=== PATIENT | female | born 1935 | race Caucasian/White ===

== ENCOUNTER 2020-12-29 16:49 | Inpatient (IN) ==
[2020-12-29] MEDS ORDERED: SODIUM CHLORIDE 0.9% 1000ML 1,000 ML IV SCH (17:00)
[2020-12-29 17:08] LABS: Basophils # (auto) 0.02 K/uL (0-0.2); Basophils % (auto) 0.2 %; Eosinophils # (auto) 0.25 K/uL (0-0.5); Eosinophils % (auto) 2.9 %; Hemoglobin 11.5 g/dL (12.0-16.0); Lymphocytes # (auto) 1.61 K/uL (1.2-3.4); Lymphocytes % (auto) 18.9 %; Mean Corpuscular Hemoglobin 31.6 pg (25-34); Mean Corpuscular Hgb Conc 32.9 g/dL (32-36); Mean Corpuscular Volume 96.2 fL (80-100); Mean Platelet Volume 9.5 fL (7.4-10.4); Monocytes # (auto) 0.75 K/uL (0.11-0.59); Monocytes % (auto) 8.8 %; Neutrophils # (auto) 5.87 K/uL (1.4-6.5); Neutrophils % (auto) 69.2 %; Platelet Count 212 K/uL (130-400); RDW Coefficient of Variation 12.5 % (11.5-14.5); RDW Standard Deviation 43.8 fL (36.4-46.3); Red Blood Count 3.64 M/uL (4.2-5.4)
[2020-12-29 17:21] LABS: Partial Thromboplastin Time 26.8 Seconds (21.0-31.0); Prothrombin Time 10.6 Seconds (9.0-12.0)
[2020-12-29 17:29] LABS: Albumin Level 3.7 gm/dl (3.4-5.0); Appearance Urine Clear (Clear); BUN Creatinine Ratio 22.5 (10-20); Bacteria Urine Automated 2+ (Negative); Bilirubin Urine Negative (Negative); Blood Urine Trace (Negative); Calcium 9.6 mg/dl (8.5-10.1); Cast Urine Automated 0 /lpf (0-5); Color Urine Yellow; Creatinine Clr Calc Pharmacy 27.4 ml/min; Epithelial Cell Urine Auto 0-5 /lpf (0-5); Est GFR (Non-African American) 29.3; Glucose Urine UA Negative (Negative); Ketones Urine Negative (Negative); Leukocyte Esterase Urine 2+ (Negative); Nitrite Urine Negative (Negative); Potassium 4.3 mmol/L (3.5-5.1); Specific Gravity Urine 1.015 (1.000-1.030); Urobilinogen Urine Negative (Negative); WBC Urine Automated >30 /hpf (0-5); pH Urine 7.5 (4.5-7.5)
[2020-12-29 17:32] LABS: Albumin Globulin Ratio 0.8 (0.9-2); Bilirubin,Total 0.3 mg/dl (0.2-1); Globulin 4.5 gm/dl (2.5-4.0); Total Protein 8.2 gm/dl (6.4-8.2)
[2020-12-29 17:34] LABS: Protein Urine Trace (Negative)
[2020-12-29] MEDS ORDERED: MoRPHine SULFATE 2 MG/ML CARP IV STA (17:34)
[2020-12-29] MEDS ORDERED: ONDANSETRON INJ 2 MG/ML 2 ML VIAL IV STA (17:34)
[2020-12-29 18:22] LABS: Influenza A virus by PCR Negative (Neg); Influenza B virus by PCR Negative (Neg); RSV by PCR Negative (Neg); SARS CoV2 RNA(COVID-19) InHosp NEGATIVE (Negative)
--- NOTE | 2020-12-29 18:22 | XRay Report ---
SINGLE VIEW PELVIS; 2 VIEWS LEFT HIP CLINICAL HISTORY: Fall. Left hip injury. FINDINGS: An AP view of the pelvis with AP and crosstable lateral views of the left hip are correlate d with pelvic CT dated 09/21/2020. The skeletal structures are osteopenic. There is an impacted subca pital fracture of the left femur. No additional fracture is seen involving the hips or bony pelvis. M ild to moderate degenerative joint space narrowing is noted in the hips. Degenerative sclerosis is se en in the sacroiliac joints. Lumbosacral spondylosis is partially visualized. Soft tissue edema overl ies left hip. There is no bowel obstruction. Surgical clips are noted in the right abdomen. IMPRESSION: Impacted subcapital fracture of the left femur. Electronically signed by: Sebastian Paul M.D. 12/29/2020 6:20 PM
--- NOTE | 2020-12-29 18:25 | CT Scan Report ---
CT SCAN OF THE BRAIN WITHOUT IV CONTRAST CLINICAL HISTORY: Fall. COMPARISON STUDY: CT of the brain dated 09/21/2020. TECHNIQUE: Unenhanced axial CT scan of the brain is performed from the vertex to the skull base. A do se lowering technique was utilized adhering to the principles of ALARA. CT DOSE: 1400.53 mGy.cm FINDINGS: Brain parenchyma: There are age-related involutional changes noting mild subcortical and periventric ular microangiopathic change. There is no hemorrhage, mass effect, or evidence of acute territorial i schemia by CT criteria. Cantrell-white matter differentiation is preserved. No extra-axial fluid collecti on is seen. Mineralization is noted in the basal ganglia. Ventricles, sulci, cisterns: Prominent secondary to involutional change. Intracranial vasculature: There is atherosclerotic calcification of the cavernous carotid and vertebr al arteries. Calvarium: The skeletal structures are osteopenic. There is no depressed calvarial fracture. Sinuses and mastoids: The visualized paranasal sinuses are clear. The mastoid air cells are well pneu matized. Cerumen fills the right external auditory canal. Orbits: The bony orbits are grossly intact. There are bilateral ocular lens implants. IMPRESSION: There is no hemorrhage, mass effect, or evidence of acute territorial ischemia by CT crit mahendra. ACT 112: Negative or not required by law. Electronically signed by: Sebastian Paul M.D. 12/29/2020 6:23 PM
--- NOTE | 2020-12-29 18:28 | XRay Report ---
SINGLE VIEW CHEST CLINICAL HISTORY: Fall. Hip fracture. FINDINGS: An AP, portable, supine chest radiograph is compared to study dated 09/21/2020. The examina tion is degraded by portable technique and patient rotation. The heart is top normal for projection n oting atherosclerotic calcification of the thoracic aorta. The pulmonary vasculature is noncongested. Chronic interstitial thickening and foci of parenchymal scarring are similar to previous. No airspac e consolidation or large pleural effusion is identified. No pneumothorax is seen. The skeletal struct ures are osteopenic. The bony thorax is grossly intact. Advanced arthritic change and deformity is no thelma in the shoulders. Degenerative change is also seen throughout the thoracic spine. IMPRESSION: No acute cardiopulmonary abnormality. ACT 112: Negative or not required by law. Electronically signed by: Sebastian Paul M.D. 12/29/2020 6:27 PM
[2020-12-29] MEDS ORDERED: cefTRIAXone SODIUM 1,000 MG/50 ML BAG IV STA (18:39)
--- NOTE | 2020-12-29 20:11 | Emergency Department Note ---
Impression & Plan Closed fracture of left hip, Acute UTI (urinary tract infection), CHI (closed head injury), Fall ED Provider Note INFORMANT: Patient ED PROVIDER(S): Harish Rico MD CHIEF COMPLAINT: Left hip pain PLAN: Disposition: Admitted Condition: Good Outpatient prescription management: none Referral: None MEDICAL DECISION MAKING: Patient presented to the emergency department concerns about left hip fracture. X-ray imaging performed and confirmed. Head CT was negative. The patient's blo od work showed no significant abnormalities. She did have findings concerning for possible UTI. She was given a dose of IV Rocephin. She was treated with morphine and Zofran for pain control. Consultation was made with [facility], Dr. Yusef Dempsey as well as the [facility] [address] hospitalist service, Dr. Rivas. Patient was evaluated in the ER further management. Triage Nursing notes reviewed and agree them. Vital Signs: reviewed and remarkable for no significant abnormalities Differential diagnosis: Fracture, dislocation, neurovascular compromise, compartment syndrome, soft tissue injury, as well as other pathologies. Diagnostics interpreted by me: ECG: Twelve-lead ECG reveals a sinus rhythm with sinus arrhythmia at 74 bpm. There is no evidence of ST elevation or depression. No PACs or PVCs. Normal axis and QRS. Cardiac Monitoring: Cardiac monitoring ordered by me: The patient was placed on continuous cardiac monitoring and observed. It revealed a normal sinus rhythm at 67 beats per minute without ectopy or evidence of dysrhythmia. Imaging studies: Chest x-ray. Findings: A chest x-ray was performed and revealed no pneumothorax, effusion, infiltrate, pulmonary edema, free air under the diaphragm, or wide mediastinum. Impression: No acute disease. X-ray imaging of the left hip reveals an impacted subcapital fracture. Head CT: A noncontrast CT scan of the head was performed and was negative for tumor, fracture, intracranial hemorrhage, or other acute pathology. HPI: The patient is a 85 year old female who presents to the Emergency Room with complaints of left hip pain. This started yesterday and is from an accidental fall. The patient also notes the following associated symptoms, mild headache from impact on the left side of the forehead. The patient has found no relieving factors. Current pain is rated as 4/10. Outpatient x-ray performed and was concerning for possible hip fracture. Pt denies LOC, fevers, chills, diaphoresis, visual changes, neck pain, chest pain, breathing difficulties, nausea, vomiting, abdominal pain, back pain, melena, hematochezia, urinary symptoms, numbness, weakness, lymphadenopathy, rash, or other complaints. ROS: See above HPI for pertinent positives & negatives. A total of 10 systems reviewed and were otherwise negative. PAST MEDICAL HISTORY:See Below , hypertension PAST SURGICAL HISTORY:See Below, FAMILY HISTORY:See Below SOCIAL HISTORY:See Below, [place] HOME MEDICATIONS:See Below ALLERGIES:See Below VITALS:See Below PHYSICAL EXAMINATION: GENERAL: Awake, alert, uncomfortable-appearing, in no distress HENT: Normocephalic, contusion and ecchymosis noted over the left eyebrow. Oropharynx unremarkable. EYES: Normal conjunctiva. Sclera non-icteric. NECK: Inspection normal. Non-tender. Supple. No nuchal rigidity. FROM. No masses. RESPIRATORY: Clear to auscultation. No wheezes. No rales. Normal respiratory effort. CARDIAC: Normal rate. Normal rhythm. No rubs. Extremities warm and well perfu sed. Pulses equal. No JVD. GI: Soft, non-distended. No tenderness to palpation. No rebound or guarding. No masses. RECTAL: Deferred. MUSCULOSKELETAL: Upper extremities and the right lower extremity are atraumatic. The left lower extremity is shortened and externally rotated. There is tenderness about the left hip. Range of motion is severely limited at the left hip secondary to pain. Remainder of the left lower extremity is atraumatic. Chest examination reveals no tenderness. The back is symmetrical on inspection without obvious abnormality. There is no CVA tenderness to palpation. No joint edema. LOWER EXTREMITIES: Calves are equal size bilaterally and non-tender. No edema. No discoloration. NEURO: Normal sensorium. No sensory or motor deficits noted. SKIN: No rash or jaundice noted. Harish Rico MD Past Med/Surg History Medical History (Updated 12/29/20 @ 20:07 by Harish Rico MD) Anemia Anxiety Aortic stenosis Dementia Depression Diabetes GERD (gastroesophageal reflux disease) HLD (hyperlipidemia) HTN (hypertension) Hypothyroid Ischemic heart disease No pertinent family history UTI (urinary tract infection) Surgical History (Updated 09/21/20 @ 20:08 by Wilner Rice) No pertinent past surgical history Family History Other Family history non-contributory Social History Smoking Status: Never smoker Feels Safe at Home: Yes Allergies Allergies Allergy/AdvReac Type Severity Reaction Status Date / Time meperidine Allergy Unknown Unknown Verified 12/29/20 17:56 Home Meds Home Medications Medication Instructions Recorded Confirmed Saccharomyces boulardii 250 mg PO BID 09/21/20 12/29/20 acetaminophen 650 mg PO Q6H PRN MDD 3 GMS 09/21/20 12/29/20 APAP/24 HOURS atorvastatin 10 mg PO HS 09/21/20 12/29/20 carbidopa-levodopa 1 tab PO TID 09/21/20 12/29/20 cyanocobalamin (vitamin B-12) 1,000 mcg PO DAILY 09/21/20 12/29/20 [Vitamin B-12] donepezil 10 mg PO HS 09/21/20 12/29/20 levothyroxine 75 mcg PO DAILY 09/21/20 12/29/20 melatonin 3 mg PO HS 09/21/20 12/29/20 multivitamin, stress formula 1 tab PO DAILY 09/21/20 12/29/20 [Stress Formula] cholecalciferol (vitamin D3) 50 mcg PO DAILY 12/29/20 12/29/20 [Vitamin D3] escitalopram oxalate 10 mg PO DAILY 12/29/20 12/29/20 memantine 5 mg PO QPM 12/29/20 12/29/20 Results & Data (ED) Vital Signs Vital Signs - 24 hr 12/29/20 17:14 12/29/20 17:50 12/29/20 19:54 Temperature 36.9 C Temperature Source Oral Pulse Rate 82 Pulse Rate [Right Finger] 88 67 Pulse Rhythm [Right Finger] Regular Pulse Strength [Right Finger] Normal Respiratory Rate 18 18 21 Respiratory Effort / Characteristics Non-Labored Spontaneous Respiratory Depth Normal Normal Respiratory Pattern Regular Blood Pressure 178/102 H Blood Pressure [Right Arm] 147/69 H 152/72 H Blood Pressure Mean 127 Blood Pressure Mean [Right Arm] 95 98 Blood Pressure Position [Right Arm] Lying Pulse Oximetry 95 94 93 Oxygen Delivery Method Room Air Room Air Sepsis Recent Fever Within 48 Hours No Sepsis New/Unexplained Change in Mental Status N/A Sepsis Action Taken by Nursing No Action Required Laboratory Data Result diagrams: 12/29/20 17:00 12/29/20 17:00 Lab Results 12/29/20 12/29/20 12/29/20 Range/Units 17:00 17:00 17:00 WBC 8.50 (4.8-10.8) K/uL RBC 3.64 L (4.2-5.4) M/uL Hgb 11.5 L (12.0-16.0) g/dL Hct 35.0 L (37-47) % MCV 96.2 (80-100) fL MCH 31.6 (25-34) pg MCHC 32.9 (32-36) g/dL RDW Std Deviation 43.8 (36.4-46.3) fL RDW Coeff of Marisol 12.5 (11.5-14.5) % Plt Count 212 (130-400) K/uL MPV 9.5 (7.4-10.4) fL Immature Gran % (Auto) 0.0 % Neut % (Auto) 69.2 % Lymph % (Auto) 18.9 % Crook % (Auto) 8.8 % Eos % (Auto) 2.9 % Baso % (Auto) 0.2 % Neut # (Auto) 5.87 (1.4-6.5) K/uL Lymph # (Auto) 1.61 (1.2-3.4) K/uL Crook # (Auto) 0.75 H (0.11-0.59) K/uL Eos # (Auto) 0.25 (0-0.5) K/uL Baso # (Auto) 0.02 (0-0.2) K/uL Immature Gran # (Auto) 0.00 (0.00-0.02) K/uL PT 10.6 (9.0-12.0) Seconds INR 1.0 (0.9-1.1) APTT 26.8 (21.0-31.0) Seconds PTT Ratio 1.0 Sodium (136-145) mmol/L Potassium (3.5-5.1) mmol/L Chloride (98-107) mmol/L Carbon Dioxide (21-32) mmol/L Anion Gap (3-11) BUN (7-18) mg/dl Creatinine (0.6-1.2) mg/dl Est Cr Clr Drug Dosing ml/min Est GFR ( Amer) Est GFR (Non-Af Amer) BUN/Creatinine Ratio (10-20) Glucose (70-99) mg/dl Calcium (8.5-10.1) mg/dl Total Bilirubin (0.2-1) mg/dl AST (15-37) U/L ALT (12-78) U/L Alkaline Phosphatase (45-117) U/L Total Protein (6.4-8.2) gm/dl Albumin (3.4-5.0) gm/dl Globulin (2.5-4.0) gm/dl Albumin/Globulin Ratio (0.9-2) Urine Color Urine Appearance (Clear) Urine pH (4.5-7.5) Ur Specific Luther (1.000-1.030) Urine Protein (Negative) Urine Glucose (UA) (Negative) Urine Ketones (Negative) Urine Blood (Negative) Urine Nitrite (Negative) Urine Bilirubin (Negative) Urine Urobilinogen (Negative) Ur Leukocyte Esterase (Negative) Urine WBC (Auto) (0-5) /hpf Urine RBC (Auto) (0-4) /hpf U Hyaline Cast (Auto) (0-5) /lpf U Epithel Cells (Auto) (0-5) /lpf Urine Bacteria (Auto) (Negative) COVID-19 Eval Order SARS-CoV-2 (PCR) (Negative) Influenza Type A (PCR) (Neg) Influenza Type B (PCR) (Neg) RSV (RT-PCR) (Neg) Blood Type O Positive Antibody Screen NEGATIVE 12/29/20 12/29/20 12/29/20 Range/Units 17:00 17:00 17:24 WBC (4.8-10.8) K/uL RBC (4.2-5.4) M/uL Hgb (12.0-16.0) g/dL Hct (37-47) % MCV (80-100) fL MCH (25-34) pg MCHC (32-36) g/dL RDW Std Deviation (36.4-46.3) fL RDW Coeff of Marisol (11.5-14.5) % Plt Count (130-400) K/uL MPV (7.4-10.4) fL Immature Gran % (Auto) % Neut % (Auto) % Lymph % (Auto) % Crook % (Auto) % Eos % (Auto) % Baso % (Auto) % Neut # (Auto) (1.4-6.5) K/uL Lymph # (Auto) (1.2-3.4) K/uL Crook # (Auto) (0.11-0.59) K/uL Eos # (Auto) (0-0.5) K/uL Baso # (Auto) (0-0.2) K/uL Immature Gran # (Auto) (0.00-0.02) K/uL PT (9.0-12.0) Seconds INR (0.9-1.1) APTT (21.0-31.0) Seconds PTT Ratio Sodium 135 L (136-145) mmol/L Potassium 4.3 (3.5-5.1) mmol/L Chloride 104 (98-107) mmol/L Carbon Dioxide 28 (21-32) mmol/L Anion Gap 3.0 (3-11) BUN 35 H (7-18) mg/dl Creatinine 1.57 H (0.6-1.2) mg/dl Est Cr Clr Drug Dosing 27.4 ml/min Est GFR ( Amer) 34.0 Est GFR (Non-Af Amer) 29.3 BUN/Creatinine Ratio 22.5 H (10-20) Glucose 137 H (70-99) mg/dl Calcium 9.6 (8.5-10.1) mg/dl Total Bilirubin 0.3 (0.2-1) mg/dl AST 15 (15-37) U/L ALT 11 L (12-78) U/L Alkaline Phosphatase 94 (45-117) U/L Total Protein 8.2 (6.4-8.2) gm/dl Albumin 3.7 (3.4-5.0) gm/dl Globulin 4.5 H (2.5-4.0) gm/dl Albumin/Globulin Ratio 0.8 L (0.9-2) Urine Color Yellow Urine Appearance Clear (Clear) Urine pH 7.5 (4.5-7.5) Ur Specific Luther 1.015 (1.000-1.030) Urine Protein Trace H (Negative) Urine Glucose (UA) Negative (Negative) Urine Ketones Negative (Negative) Urine Blood Trace H (Negative) Urine Nitrite Negative (Negative) Urine Bilirubin Negative (Negative) Urine Urobilinogen Negative (Negative) Ur Leukocyte Esterase 2+ H (Negative) Urine WBC (Auto) >30 H (0-5) /hpf Urine RBC (Auto) 5-10 H (0-4) /hpf U Hyaline Cast (Auto) 0 (0-5) /lpf U Epithel Cells (Auto) 0-5 (0-5) /lpf Urine Bacteria (Auto) 2+ H (Negative) COVID-19 Eval Order CovFluRsv at [facility] SARS-CoV-2 (PCR) (Negative) Influenza Type A (PCR) (Neg) Influenza Type B (PCR) (Neg) RSV (RT-PCR) (Neg) Blood Type Antibody Screen 12/29/20 Range/Units 17:24 WBC (4.8-10.8) K/uL RBC (4.2-5.4) M/uL Hgb (12.0-16.0) g/dL Hct (37-47) % MCV (80-100) fL MCH (25-34) pg MCHC (32-36) g/dL RDW Std Deviation (36.4-46.3) fL RDW Coeff of Marisol (11.5-14.5) % Plt Count (130-400) K/uL MPV (7.4-10.4) fL Immature Gran % (Auto) % Neut % (Auto) % Lymph % (Auto) % Crook % (Auto) % Eos % (Auto) % Baso % (Auto) % Neut # (Auto) (1.4-6.5) K/uL Lymph # (Auto) (1.2-3.4) K/uL Crook # (Auto) (0.11-0.59) K/uL Eos # (Auto) (0-0.5) K/uL Baso # (Auto) (0-0.2) K/uL Immature Gran # (Auto) (0.00-0.02) K/uL PT (9.0-12.0) Seconds INR (0.9-1.1) APTT (21.0-31.0) Seconds PTT Ratio Sodium (136-145) mmol/L Potassium (3.5-5.1) mmol/L Chloride (98-107) mmol/L Carbon Dioxide (21-32) mmol/L Anion Gap (3-11) BUN (7-18) mg/dl Creatinine (0.6-1.2) mg/dl Est Cr Clr Drug Dosing ml/min Est GFR ( Amer) Est GFR (Non-Af Amer) BUN/Creatinine Ratio (10-20) Glucose (70-99) mg/dl Calcium (8.5-10.1) mg/dl Total Bilirubin (0.2-1) mg/dl AST (15-37) U/L ALT (12-78) U/L Alkaline Phosphatase (45-117) U/L Total Protein (6.4-8.2) gm/dl Albumin (3.4-5.0) gm/dl Globulin (2.5-4.0) gm/dl Albumin/Globulin Ratio (0.9-2) Urine Color Urine Appearance (Clear) Urine pH (4.5-7.5) Ur Specific Luther (1.000-1.030) Urine Protein (Negative) Urine Glucose (UA) (Negative) Urine Ketones (Negative) Urine Blood (Negative) Urine Nitrite (Negative) Urine Bilirubin (Negative) Urine Urobilinogen (Negative) Ur Leukocyte Esterase (Negative) Urine WBC (Auto) (0-5) /hpf Urine RBC (Auto) (0-4) /hpf U Hyaline Cast (Auto) (0-5) /lpf U Epithel Cells (Auto) (0-5) /lpf Urine Bacteria (Auto) (Negative) COVID-19 Eval Order SARS-CoV-2 (PCR) NEGATIVE (Negative) Influenza Type A (PCR) Negative (Neg) Influenza Type B (PCR) Negative (Neg) RSV (RT-PCR) Negative (Neg) Blood Type Antibody Screen Administered Medications Sodium Chloride (Nss 1000ml) 1,000 mls @ 75 mls/hr IV .[id number] Stop: 12/30/20 06:19 Last Admin: 12/29/20 17:16 Dose: 75 mls/hr Documented by: [id number] Discontinued Medications Ceftriaxone Sodium (Rocephin) 1,000 mg in 50 mls @ 100 mls/hr IV NOW STA Stop: 12/29/20 19:08 Last Infusion: 12/29/20 19:30 Dose: 0 mls/hr Documented by: [id number] Admin: 12/29/20 18:44 Dose: 100 mls/hr Documented by: [id number] Morphine Sulfate (Morphine Sulfate 2 Mg/Ml Carp) 2 mg IV NOW STA Stop: 12/29/20 17:35 Last Admin: 12/29/20 17:42 Dose: 2 mg Documented by: [id number] Ondansetron HCl (Ondansetron Inj 2 Mg/Ml 2 Ml Vial) 4 mg IV NOW STA Stop: 12/29/20 17:35 Last Admin: 12/29/20 17:42 Dose: 4 mg Documented by: [id number] Imaging Data Radiologist's Impression: Chest X-Ray 12/29/20 17:34 SINGLE VIEW CHEST CLINICAL HISTORY: Fall. Hip fracture. FINDINGS: An AP, portable, supine chest radiograph is compared to study dated 09/21/2020. The examination is degraded by portable technique and patient rotation. The heart is top normal for projection noting atherosclerotic calcification of the thoracic aorta. The pulmonary vasculature is noncongested. Chronic interstitial thickening and foci of parenchymal scarring are similar to previous. No airspace consolidation or large pleural effusion is identified. No pneumothorax is seen. The skeletal structures are osteopenic. The bony thorax is grossly intact. Advanced arthritic change and deformity is noted in the shoulders. Degenerative change is also seen throughout the thoracic spine. IMPRESSION: No acute cardiopulmonary abnormality. ACT 112: Negative or not required by law. Electronically signed by: Sebastian Paul M.D. 12/29/2020 6:[address] 12/29/20 17:34 CT SCAN OF THE BRAIN WITHOUT IV CONTRAST CLINICAL HISTORY: Fall. COMPARISON STUDY: CT of the brain dated 09/21/2020. TECHNIQUE: Unenhanced axial CT scan of the brain is performed from the vertex to the skull base. A dose lowering technique was utilized adhering to the principles of ALARA. CT DOSE: 1400.53 mGy.cm FINDINGS: Brain parenchyma: There are age-related involutional changes noting mild subcortical and periventricular microangiopathic change. There is no hemorrhage, mass effect, or evidence of acute territorial ischemia by CT criteria. Cantrell- white matter differentiation is preserved. No extra-axial fluid collection is se en. Mineralization is noted in the basal ganglia. Ventricles, sulci, cisterns: Prominent secondary to involutional change. Intracranial vasculature: There is atherosclerotic calcification of the cavernous carotid and vertebral arteries. Calvarium: The skeletal structures are osteopenic. There is no depressed calvarial fracture. Sinuses and mastoids: The visualized paranasal sinuses are clear. The mastoid air cells are well pneumatized. Cerumen fills the right external auditory canal. Orbits: The bony orbits are grossly intact. There are bilateral ocular lens implants. IMPRESSION: There is no hemorrhage, mass effect, or evidence of acute territorial ischemia by CT criteria. ACT 112: Negative or not required by law. Electronically signed by: Sebastian Paul M.D. 12/29/2020 6:23 PM Hip/Pelvis X-Ray 12/29/20 17:34 SINGLE VIEW PELVIS; 2 VIEWS LEFT HIP CLINICAL HISTORY: Fall. Left hip injury. FINDINGS: An AP view of the pelvis with AP and crosstable lateral views of the l eft hip are correlated with pelvic CT dated 09/21/2020. The skeletal structures are osteopenic. There is an impacted subcapital fracture of the left femur. No additional fracture is seen involving the hips or bony pelvis. Mild to moderate degenerative joint space narrowing is noted in the hips. Degenerative sclerosis is seen in the sacroiliac joints. Lumbosacral spondylosis is partially visualized. Soft tissue edema overlies left hip. There is no bowel obstruction. Surgical clips are noted in the right abdomen. IMPRESSION: Impacted subcapital fracture of the left femur. Electronically signed by: Sebastian Paul M.D. 12/29/2020 6:20 PM Discharge Plan Visit Data Chief Complaint: Hip Pain Stated Complaint: HIP FX ED Provider: Harish Rico Discharge Problem: Closed fracture of left hip, Acute UTI (urinary tract infection), CHI (closed head injury), Fall Forms Stand Alone Forms: [facility] [employer] Prescriptions Prescriptions: No Action acetaminophen 325 mg Tablet 650 mg PO Q6H MDD 3 GMS APAP/24 HOURS PRN (Reason: Fever Or Pain) RF: 0 atorvastatin 10 mg tablet 10 mg PO HS RF: 0 donepezil 10 mg tablet 10 mg PO HS RF: 0 cyanocobalamin (vitamin B-12) [Vitamin B-12] 1,000 mcg Tablet 1,000 mcg PO DAILY RF: 0 melatonin 3 mg Tablet 3 mg PO HS RF: 0 levothyroxine 75 mcg tablet 75 mcg PO DAILY RF: 0 carbidopa-levodopa 25-100 mg tablet 1 tab PO TID RF: 0 Stress Formula Tablet 1 tab PO DAILY RF: 0 Saccharomyces boulardii 250 mg Capsule 250 mg PO BID RF: 0 escitalopram oxalate 10 mg tablet 10 mg PO DAILY RF: 0 memantine 5 mg tablet 5 mg PO QPM RF: 0 cholecalciferol (vitamin D3) [Vitamin D3] 50 mcg (2,000 unit) Tablet 50 mcg PO DAILY RF: 0
--- NOTE | 2020-12-29 20:14 | History & Physical Report ---
Date of Service December 29, 2020 Assessment & Plan (1) Closed fracture of left hip: 85yo C female with impacted subcapital fracture of the left femur after a fall yesterday at her long term. She is neurovascularly intact. Pain is well controlled after receiving 2mg IV Morphine. She is ambulatory with a walker at baseline. -Admit to medical -Bedrest -Maintain Baez catheter -Pain control with Tylenol, Oxycodone and Morphine PRN -Bowel regimen -Ortho consultation appreciated Patient with history of ischemic heart disease, details unknown. She denies chest pain at rest or with exertion. Her EKG does not show evidence of ischemia. Per RCRI criteria patient is Class II risk. -Check BNP and troponin -Post-operative cardiac monitoring Present on Admission?: Yes (2) Acute UTI (urinary tract infection): Patient admits to dysuria x 1-2 days. UA suggestive of infection with +bacteria -Ceftriaxone 1gm IV daily -Follow cultures -Continue Saccharomyces home medication Present on Admission?: Yes (3) CHI (closed head injury): Patient found down in room. Has bruise over left eyelid. No neurological deficits. He is not on any blood thinners or antiplatelets. -Neuro checks Present on Admission?: Yes (4) Hypothyroid: Chronic. Last TSH within normal limits at 1.070 on 09/14/20 -Continue Synthroid Present on Admission?: Yes (5) HLD (hyperlipidemia): Chronic -Continue Atorvastatin 10mg po qHS Present on Admission?: Yes (6) Depression: Chronic. -Continue escitalopram Present on Admission?: Yes (7) Dementia: Patient oriented x 1 -Continue Memantine -Continue Aricept -Frequent orientation with delirium prevention strategies F/E/N - LR at 80mL/hr after midnight, electrolytes WNL - check Mg and PO4 and replete as needed, NPO after midnight Ppx - SCDs Code - Full Dispo - Admit to medical Present on Admission?: Yes History of Present Illness Chief Complaint: left hip fracture Primary Care Provider: [facility] Caryl Gaytan is an 85yo C female resident of [facility] presenting with fracture of left hip after a mechanical fall yesterday. Patient with underlying dementia as well as worsened confusion after receiving morphine and is unable to provide details of events prior to arrival. Majority of history obtained through discussion with ER staff and chart review. Per record review, patient was found down in her room yesterday after falling. She denies CP/palpitations or syncope. She did strike her head and was noted to have a bruise over the left eye. Patient had pain in the left hip - she continued to ambulate. An x-ray was performed at [facility] and patient found to have a left hip fracture therefore she was sent to [facility]. Patient complaining of mild left hip pain. She is not happy being in the ER and is somewhat frustrated that she has been here so long. Otherwise, no complaints. Specifically she denies fever, chills, cough, SOB, abdominal pain, nausea, vomiting, diarrhea or constipation. ER Course: Ceftriaxone 1gm, Morphine 2mg, Zofran 4mg, NSS Allergies Allergy/AdvReac Type Severity Reaction Status Date / Time meperidine Allergy Unknown Unknown Verified 12/29/20 17:56 Home Medications Medication Instructions Recorded Confirmed Type Saccharomyces boulardii 250 mg PO BID 09/21/20 12/29/20 History acetaminophen 650 mg PO Q6H PRN MDD 3 GMS 09/21/20 12/29/20 History APAP/24 HOURS atorvastatin 10 mg PO HS 09/21/20 12/29/20 History carbidopa-levodopa 1 tab PO TID 09/21/20 12/29/20 History cyanocobalamin (vitamin B-12) 1,000 mcg PO DAILY 09/21/20 12/29/20 History [Vitamin B-12] donepezil 10 mg PO HS 09/21/20 12/29/20 History levothyroxine 75 mcg PO DAILY 09/21/20 12/29/20 History melatonin 3 mg PO HS 09/21/20 12/29/20 History multivitamin, stress formula 1 tab PO DAILY 09/21/20 12/29/20 History [Stress Formula] cholecalciferol (vitamin D3) 50 mcg PO DAILY 12/29/20 12/29/20 History [Vitamin D3] escitalopram oxalate 10 mg PO DAILY 12/29/20 12/29/20 History memantine 5 mg PO QPM 12/29/20 12/29/20 History Past Med/Surg History Medical History Anemia Anxiety Aortic stenosis Dementia Depression Diabetes GERD (gastroesophageal reflux disease) HLD (hyperlipidemia) HTN (hypertension) Hypothyroid Ischemic heart disease No pertinent family history UTI (urinary tract infection) Surgical History No pertinent past surgical history Family History Other Family history non-contributory Social History Smoking Status: Never smoker Feels Safe at Home: Yes Review of Systems Review of Systems: All systems reviewed & are unremarkable except as noted in HPI & below Physical Exam Physical Exam: General: patient resting comfortably, NAD, non-toxic in appearance, AA&O to self Skin: warm, dry, intact, well demarcated erythematous rash beneath panus HEENT: NC/AT, PERRL, EOMI, anicteric sclera, conjunctiva without injection, external ear normal to inspection and nontender, nares patent, moist mucus membranes, dentition intact, no oropharyngeal lesions, neck supple, trachea midline, no LAD, no thyromegaly, no JVD Heart: +S1/S2, regular, no m/r/g Lungs: equal air entry bilaterally, no rales/rhonchi/wheezes Abd: +BS, soft, NT/ND, no masses/organomegaly/ascites Ext: warm, 2+ pulses in UE/LE bilaterally, no clubbing/cyanosis or edema Neuro: nonfocal, patient AA&O to self, speech intact, no facial droop, moving all extremities on command with equal strength 5/5 Results & Data Results & Data ([facility]) Vital Signs (Past 12 Hours) Vital Signs Temp Pulse Pulse Resp BP BP Pulse Ox 12/29/20 19:54 67 21 152/72 H 93 12/29/20 17:50 88 18 147/69 H 94 12/29/20 17:14 36.9 C 82 18 178/102 H 95 Laboratory Results Lab Results 12/29/20 12/29/20 12/29/20 Range/Units 17:00 17:00 17:00 WBC 8.50 (4.8-10.8) K/uL RBC 3.64 L (4.2-5.4) M/uL Hgb 11.5 L (12.0-16.0) g/dL Hct 35.0 L (37-47) % MCV 96.2 (80-100) fL MCH 31.6 (25-34) pg MCHC 32.9 (32-36) g/dL RDW Std Deviation 43.8 (36.4-46.3) fL RDW Coeff of Marisol 12.5 (11.5-14.5) % Plt Count 212 (130-400) K/uL MPV 9.5 (7.4-10.4) fL Immature Gran % (Auto) 0.0 % Neut % (Auto) 69.2 % Lymph % (Auto) 18.9 % [place] % (Auto) 8.8 % Eos % (Auto) 2.9 % Baso % (Auto) 0.2 % Neut # (Auto) 5.87 (1.4-6.5) K/uL Lymph # (Auto) 1.61 (1.2-3.4) K/uL [place] # (Auto) 0.75 H (0.11-0.59) K/uL Eos # (Auto) 0.25 (0-0.5) K/uL Baso # (Auto) 0.02 (0-0.2) K/uL Immature Gran # (Auto) 0.00 (0.00-0.02) K/uL PT 10.6 (9.0-12.0) Seconds INR 1.0 (0.9-1.1) APTT 26.8 (21.0-31.0) Seconds PTT Ratio 1.0 Sodium (136-145) mmol/L Potassium (3.5-5.1) mmol/L Chloride (98-107) mmol/L Carbon Dioxide (21-32) mmol/L Anion Gap (3-11) BUN (7-18) mg/dl Creatinine (0.6-1.2) mg/dl Est Cr Clr Drug Dosing ml/min Est GFR ( Amer) Est GFR (Non-Af Amer) BUN/Creatinine Ratio (10-20) Glucose (70-99) mg/dl Calcium (8.5-10.1) mg/dl Total Bilirubin (0.2-1) mg/dl AST (15-37) U/L ALT (12-78) U/L Alkaline Phosphatase (45-117) U/L Total Protein (6.4-8.2) gm/dl Albumin (3.4-5.0) gm/dl Globulin (2.5-4.0) gm/dl Albumin/Globulin Ratio (0.9-2) Urine Color Urine Appearance (Clear) Urine pH (4.5-7.5) Ur Specific Cannon (1.000-1.030) Urine Protein (Negative) Urine Glucose (UA) (Negative) Urine Ketones (Negative) Urine Blood (Negative) Urine Nitrite (Negative) Urine Bilirubin (Negative) Urine Urobilinogen (Negative) Ur Leukocyte Esterase (Negative) Urine WBC (Auto) (0-5) /hpf Urine RBC (Auto) (0-4) /hpf U Hyaline Cast (Auto) (0-5) /lpf U Epithel Cells (Auto) (0-5) /lpf Urine Bacteria (Auto) (Negative) COVID-19 Eval Order SARS-CoV-2 (PCR) (Negative) Influenza Type A (PCR) (Neg) Influenza Type B (PCR) (Neg) RSV (RT-PCR) (Neg) Blood Type O Positive Antibody Screen NEGATIVE 12/29/20 12/29/20 12/29/20 Range/Units 17:00 17:00 17:24 WBC (4.8-10.8) K/uL RBC (4.2-5.4) M/uL Hgb (12.0-16.0) g/dL Hct (37-47) % MCV (80-100) fL MCH (25-34) pg MCHC (32-36) g/dL RDW Std Deviation (36.4-46.3) fL RDW Coeff of Marisol (11.5-14.5) % Plt Count (130-400) K/uL MPV (7.4-10.4) fL Immature Gran % (Auto) % Neut % (Auto) % Lymph % (Auto) % [place] % (Auto) % Eos % (Auto) % Baso % (Auto) % Neut # (Auto) (1.4-6.5) K/uL Lymph # (Auto) (1.2-3.4) K/uL [place] # (Auto) (0.11-0.59) K/uL Eos # (Auto) (0-0.5) K/uL Baso # (Auto) (0-0.2) K/uL Immature Gran # (Auto) (0.00-0.02) K/uL PT (9.0-12.0) Seconds INR (0.9-1.1) APTT (21.0-31.0) Seconds PTT Ratio Sodium 135 L (136-145) mmol/L Potassium 4.3 (3.5-5.1) mmol/L Chloride 104 (98-107) mmol/L Carbon Dioxide 28 (21-32) mmol/L Anion Gap 3.0 (3-11) BUN 35 H (7-18) mg/dl Creatinine 1.57 H (0.6-1.2) mg/dl Est Cr Clr Drug Dosing 27.4 ml/min Est GFR ( Amer) 34.0 Est GFR (Non-Af Amer) 29.3 BUN/Creatinine Ratio 22.5 H (10-20) Glucose 137 H (70-99) mg/dl Calcium 9.6 (8.5-10.1) mg/dl Total Bilirubin 0.3 (0.2-1) mg/dl AST 15 (15-37) U/L ALT 11 L (12-78) U/L Alkaline Phosphatase 94 (45-117) U/L Total Protein 8.2 (6.4-8.2) gm/dl Albumin 3.7 (3.4-5.0) gm/dl Globulin 4.5 H (2.5-4.0) gm/dl Albumin/Globulin Ratio 0.8 L (0.9-2) Urine Color Yellow Urine Appearance Clear (Clear) Urine pH 7.5 (4.5-7.5) Ur Specific Cannon 1.015 (1.000-1.030) Urine Protein Trace H (Negative) Urine Glucose (UA) Negative (Negative) Urine Ketones Negative (Negative) Urine Blood Trace H (Negative) Urine Nitrite Negative (Negative) Urine Bilirubin Negative (Negative) Urine Urobilinogen Negative (Negative) Ur Leukocyte Esterase 2+ H (Negative) Urine WBC (Auto) >30 H (0-5) /hpf Urine RBC (Auto) 5-10 H (0-4) /hpf U Hyaline Cast (Auto) 0 (0-5) /lpf U Epithel Cells (Auto) 0-5 (0-5) /lpf Urine Bacteria (Auto) 2+ H (Negative) COVID-19 Eval Order CovFluRsv at [facility] SARS-CoV-2 (PCR) (Negative) Influenza Type A (PCR) (Neg) Influenza Type B (PCR) (Neg) RSV (RT-PCR) (Neg) Blood Type Antibody Screen 12/29/20 Range/Units 17:24 WBC (4.8-10.8) K/uL RBC (4.2-5.4) M/uL Hgb (12.0-16.0) g/dL Hct (37-47) % MCV (80-100) fL MCH (25-34) pg MCHC (32-36) g/dL RDW Std Deviation (36.4-46.3) fL RDW Coeff of Marisol (11.5-14.5) % Plt Count (130-400) K/uL MPV (7.4-10.4) fL Immature Gran % (Auto) % Neut % (Auto) % Lymph % (Auto) % [place] % (Auto) % Eos % (Auto) % Baso % (Auto) % Neut # (Auto) (1.4-6.5) K/uL Lymph # (Auto) (1.2-3.4) K/uL [place] # (Auto) (0.11-0.59) K/uL Eos # (Auto) (0-0.5) K/uL Baso # (Auto) (0-0.2) K/uL Immature Gran # (Auto) (0.00-0.02) K/uL PT (9.0-12.0) Seconds INR (0.9-1.1) APTT (21.0-31.0) Seconds PTT Ratio Sodium (136-145) mmol/L Potassium (3.5-5.1) mmol/L Chloride (98-107) mmol/L Carbon Dioxide (21-32) mmol/L Anion Gap (3-11) BUN (7-18) mg/dl Creatinine (0.6-1.2) mg/dl Est Cr Clr Drug Dosing ml/min Est GFR ( Amer) Est GFR (Non-Af Amer) BUN/Creatinine Ratio (10-20) Glucose (70-99) mg/dl Calcium (8.5-10.1) mg/dl Total Bilirubin (0.2-1) mg/dl AST (15-37) U/L ALT (12-78) U/L Alkaline Phosphatase (45-117) U/L Total Protein (6.4-8.2) gm/dl Albumin (3.4-5.0) gm/dl Globulin (2.5-4.0) gm/dl Albumin/Globulin Ratio (0.9-2) Urine Color Urine Appearance (Clear) Urine pH (4.5-7.5) Ur Specific Cannon (1.000-1.030) Urine Protein (Negative) Urine Glucose (UA) (Negative) Urine Ketones (Negative) Urine Blood (Negative) Urine Nitrite (Negative) Urine Bilirubin (Negative) Urine Urobilinogen (Negative) Ur Leukocyte Esterase (Negative) Urine WBC (Auto) (0-5) /hpf Urine RBC (Auto) (0-4) /hpf U Hyaline Cast (Auto) (0-5) /lpf U Epithel Cells (Auto) (0-5) /lpf Urine Bacteria (Auto) (Negative) COVID-19 Eval Order SARS-CoV-2 (PCR) NEGATIVE (Negative) Influenza Type A (PCR) Negative (Neg) Influenza Type B (PCR) Negative (Neg) RSV (RT-PCR) Negative (Neg) Blood Type Antibody Screen Diagnostic Findings SINGLE VIEW PELVIS; 2 VIEWS LEFT HIP CLINICAL HISTORY: Fall. Left hip injury. FINDINGS: An AP view of the pelvis with AP and crosstable lateral views of the left hip are correlated with pelvic CT dated 09/21/2020. The skeletal structures are osteopenic. There is an impacted subcapital fracture of the left femur. No additional fracture is seen involving the hips or bony pelvis. Mild to moderate degenerative joint space narrowing is noted in the hips. Degenerative sclerosis is seen in the sacroiliac joints. Lumbosacral spondylosis is partially visualized. Soft tissue edema overlies left hip. There is no bowel obstruction. Surgical clips are noted in the right abdomen. IMPRESSION: Impacted subcapital fracture of the left femur. Electronically signed by: Sebastian Paul M.D. 12/29/2020 6:20 PM Dictated: 12/29/201818Transcribed: 12/29/201818 CT SCAN OF THE BRAIN WITHOUT IV CONTRAST CLINICAL HISTORY: Fall. COMPARISON STUDY: CT of the brain dated 09/21/2020. TECHNIQUE: Unenhanced axial CT scan of the brain is performed from the vertex to the skull base. A dose lowering technique was utilized adhering to the principles of ALARA. CT DOSE: 1400.53 mGy.cm FINDINGS: Brain parenchyma: There are age-related involutional changes noting mild subcortical and periventricular microangiopathic change. There is no hemorrhage, mass effect, or evidence of acute territorial ischemia by CT criteria. Cantrell- white matter differentiation is preserved. No extra-axial fluid collection is seen. Mineralization is noted in the basal ganglia. Ventricles, sulci, cisterns: Prominent secondary to involutional change. Intracranial vasculature: There is atherosclerotic calcification of the cavernous carotid and vertebral arteries. Calvarium: The skeletal structures are osteopenic. There is no depressed calvarial fracture. Sinuses and mastoids: The visualized paranasal sinuses are clear. The mastoid air cells are well pneumatized. Cerumen fills the right external auditory canal. Orbits: The bony orbits are grossly intact. There are bilateral ocular lens implants. IMPRESSION: There is no hemorrhage, mass effect, or evidence of acute territorial ischemia by CT criteria. ACT 112: Negative or not required by law. Electronically signed by: Sebastian Paul M.D. 12/29/2020 6:23 PM Dictated: 12/29/201820Transcribed: 12/29/201820 SINGLE VIEW CHEST CLINICAL HISTORY: Fall. Hip fracture. FINDINGS: An AP, portable, supine chest radiograph is compared to study dated 09/21/2020. The examination is degraded by portable technique and patient rotation. The heart is top normal for projection noting atherosclerotic calcification of the thoracic aorta. The pulmonary vasculature is noncongested. Chronic interstitial thickening and foci of parenchymal scarring are similar to previous. No airspace consolidation or large pleural effusion is identified. No pneumothorax is seen. The skeletal structures are osteopenic. The bony thorax is grossly intact. Advanced arthritic change and deformity is noted in the shoulders. Degenerative change is also seen throughout the thoracic spine. IMPRESSION: No acute cardiopulmonary abnormality. ACT 112: Negative or not required by law. Electronically signed by: Sebastian Paul M.D. 12/29/2020 6:27 PM ECG Additional Comments: EKG with SR at 74 bpm with sinus arrhythmia, QV=194, QRS=70, TUv=241, no acute ischemic changes PG Care Time/CCT Total # of Minutes Spent Total Time Spent with Patient: Total time spent is greater than 50% in coordination of care (as documented) at patient's floor/unit and/or counseling patient: Coding Level of Care Code 71613 Initial Inpt Care Lvl 3 Diagnoses Closed fracture of left hip S72.002A Encounter type: initial encounter Acute UTI (urinary tract infection) N39.0 CHI (closed head injury) S09.90XA Encounter type: initial encounter Hypothyroid E03.9 Hypothyroidism type: unspecified HLD (hyperlipidemia) E78.5 Hyperlipidemia type: unspecified Depression F32.9 Depression Type: major depressive disorder Major depression recurrence: unspecified whether recurrent Active/Remission status: remission status unspecified Dementia F03.90 Dementia type: unspecified type Dementia behavioral disturbance: without behavioral disturbance (1) CHI (closed head injury) Encounter type: initial encounter Qualified Code(s): S09.90XA - Unspecified injury of head, initial encounter (2) Dementia Dementia type: unspecified type Dementia behavioral disturbance: without behavioral disturbance Qualified Code(s): F03.90 - Unspecified dementia without behavioral disturbance (3) Depression Depression Type: major depressive disorder Major depression recurrence: unspecified whether recurrent Active/Remission status: remission status unspecified Qualified Code(s): F32.9 - Major depressive disorder, single episode, unspecified (4) HLD (hyperlipidemia) Hyperlipidemia type: unspecified Qualified Code(s): E78.5 - Hyperlipidemia, unspecified (5) Hypothyroid Hypothyroidism type: unspecified Qualified Code(s): E03.9 - Hypothyroidism, unspecified (6) Closed fracture of left hip Encounter type: initial encounter Qualified Code(s): S72.002A - Fracture of unspecified part of neck of left femur, initial encounter for closed fracture
[2020-12-29] MEDS ORDERED: ONDANSETRON INJ 2 MG/ML 2 ML VIAL IV PRN (21:10)
[2020-12-29] MEDS ORDERED: MAGNESIUM HYDROXIDE SUSP 30 ML UDC PO PRN (21:10)
[2020-12-29] MEDS: NYSTATIN OINT 15 GM TUBE EXT SCH (21:10)
[2020-12-29] MEDS ORDERED: bisacodyL 10 MG SUPP PR PRN (21:10)
[2020-12-29] MEDS ORDERED: NALOXONE HCL 0.4 MG/1 ML VIAL/CARP IV PRN (21:10)
[2020-12-29] MEDS ORDERED: LACTATED RINGER'S 1,000 ML IV SCH (21:10)
[2020-12-29] MEDS ORDERED: ACETAMINOPHEN 325 MG TAB PO PRN (21:10)
[2020-12-29 21:29] LABS: Magnesium 1.9 mg/dl (1.8-2.4); NT Pro B Type Natriuretic Pept 415 pg/ml (0-1800); Phosphorus 3.2 mg/dl (2.5-4.9); Troponin I < 0.015 ng/ml (0-0.045)
[2020-12-29] MEDS: DONEPEZIL HCL 10 MG TAB PO SCH (22:33)
[2020-12-29] MEDS: SACCHAROMYCES BOULARDII 250 MG CAP PO SCH (22:34)
[2020-12-29] MEDS: MELATONIN 3 MG TAB PO SCH (22:35)
[2020-12-29] MEDS: ATORVASTATIN 10 MG TAB PO SCH (22:35)
[2020-12-29] MEDS: MEMANTINE HCL 5 MG TAB PO SCH (22:36)
[2020-12-29] MEDS: CARBIDOPA/LEVODOPA 25/100MG TAB PO SCH (22:36)
[2020-12-29] MEDS: DOCUSATE SODIUM/SENNA 50/8.6MG TAB PO SCH (22:36)
[2020-12-30] MEDS: LEVOTHYROXINE SODIUM 75 MCG TABLET PO SCH (05:45)
[2020-12-30] MEDS: CARBIDOPA/LEVODOPA 25/100MG TAB PO SCH ×3 (07:45→22:01)
[2020-12-30] MEDS: ESCITALOPRAM OXALATE 10 MG TAB PO SCH (07:45)
[2020-12-30] MEDS: SACCHAROMYCES BOULARDII 250 MG CAP PO SCH ×2 (07:45→22:00)
[2020-12-30] MEDS: NYSTATIN OINT 15 GM TUBE EXT SCH ×2 (07:45→22:03)
[2020-12-30 08:46] LABS: Basophils # (auto) 0.01 K/uL (0-0.2); Basophils % (auto) 0.2 %; Eosinophils # (auto) 0.41 K/uL (0-0.5); Hematocrit (blood only) 33.4 % (37-47); Hemoglobin 10.8 g/dL (12.0-16.0); Lymphocytes # (auto) 1.77 K/uL (1.2-3.4); Lymphocytes % (auto) 30.1 %; Mean Corpuscular Hemoglobin 31.5 pg (25-34); Mean Corpuscular Hgb Conc 32.3 g/dL (32-36); Mean Corpuscular Volume 97.4 fL (80-100); Mean Platelet Volume 9.2 fL (7.4-10.4); Monocytes # (auto) 0.51 K/uL (0.11-0.59); Monocytes % (auto) 8.7 %; Neutrophils # (auto) 3.19 K/uL (1.4-6.5); Platelet Count 191 K/uL (130-400); RDW Coefficient of Variation 12.7 % (11.5-14.5); RDW Standard Deviation 45.3 fL (36.4-46.3); Red Blood Count 3.43 M/uL (4.2-5.4); White Blood Count 5.89 K/uL (4.8-10.8)
--- NOTE | 2020-12-30 09:15 | CT Scan Report ---
CT hip LT wo con CLINICAL HISTORY: Femoral neck fracture. COMPARISON STUDY: Left hip radiographs December 29, 2020. TECHNIQUE: Axial images of the left hip were obtained without IV contrast. Sagittal and coronal recon structions were viewed. Automated exposure control was utilized for the study. A dose lowering techn ique was utilized adhering to the principles of ALARA. FINDINGS: Note is made of an acute impacted mildly displaced subcapital left femoral neck fracture. N o additional fractures are identified within visualized portions of the left hemipelvis. No osseous l esion is noted. A left hip joint effusion is present. There is possible intramuscular hemorrhage with in the left adductor muscles. IMPRESSION: 1. Acute impacted mildly displaced subcapital left femoral neck fracture. 2. Prominence of the left adductor muscles. Intramuscular hemorrhage cannot be excluded. ACT 112: Negative or not required by law. Electronically signed by: Rajat Contreras M.D. 12/30/2020 9:14 AM
[2020-12-30 09:22] LABS: Alanine Aminotransferase 7 U/L (12-78); Albumin Level 3.1 gm/dl (3.4-5.0); Aspartate Aminotransferase 11 U/L (15-37); BUN Creatinine Ratio 20.6 (10-20); Bilirubin Direct < 0.1 mg/dl (0-0.2); Blood Urea Nitrogen 30 mg/dl (7-18); Calcium 9.1 mg/dl (8.5-10.1); Carbon Dioxide 28 mmol/L (21-32); Chloride 106 mmol/L (98-107); Creatinine Clr Calc Pharmacy 29.5 ml/min; Est GFR (African American) 37.7; Est GFR (Non-African American) 32.6; Glucose 87 mg/dl (70-99); Potassium 4.4 mmol/L (3.5-5.1); Sodium 136 mmol/L (136-145)
[2020-12-30 09:25] LABS: Alkaline Phosphatase 69 U/L (45-117); Bilirubin,Total 0.4 mg/dl (0.2-1)
--- NOTE | 2020-12-30 09:41 | Orthopedic Consultation ---
Date of Consultation December 30, 2020 Assessment & Plan (1) Closed fracture of left hip: Left subcapital hip fracture impacted mildly displaced. Dr. Meade is to review the CT scan. Patient will likely need ORIF with 7.3 cannulated screws versus bipolar hemiarthroplasty. I have spoken to Dr. Rae. She states that the patient is stable for surgery. Plan for OR today pending Dr. Meade's evaluation. CT reviewed and impaction but no major angulation and satisfactory alignment for cannulated screws. History of Present Illness Reason for Consultation: Left subcapital hip fracture Attending Physician: Tiff Rae MD History of Present Illness 85-year-old female who resides at [facility] was found on the floor yesterday. Patient has a history of dementia and currently she is pleasant. She mentions that she fell but does not really remember what happened. The staff found her lying on the floor and having some discomfort in the left lower extremity. X-rays were taken it was felt that she had a hip fracture of left hip. She was transferred to [facility] where she was admitted by the hospitalist service. Further films were taken here and a CT scan was then performed as well showing a slightly displaced impacted subcapital hip fracture of the left hip. We have been asked to take care of her left hip fracture. Currently she appears comfortable but complains of left hip pain when she tries to move the left hip. Allergies Allergy/AdvReac Type Severity Reaction Status Date / Time meperidine Allergy Unknown Unknown Verified 12/29/20 17:56 Home Medications Medication Instructions Recorded Confirmed Type Saccharomyces boulardii 250 mg PO BID 09/21/20 12/29/20 History acetaminophen 650 mg PO Q6H PRN MDD 3 GMS 09/21/20 12/29/20 History APAP/24 HOURS atorvastatin 10 mg PO HS 09/21/20 12/29/20 History carbidopa-levodopa 1 tab PO TID 09/21/20 12/29/20 History cyanocobalamin (vitamin B-12) 1,000 mcg PO DAILY 09/21/20 12/29/20 History [Vitamin B-12] donepezil 10 mg PO HS 09/21/20 12/29/20 History levothyroxine 75 mcg PO DAILY 09/21/20 12/29/20 History melatonin 3 mg PO HS 09/21/20 12/29/20 History multivitamin, stress formula 1 tab PO DAILY 09/21/20 12/29/20 History [Stress Formula] cholecalciferol (vitamin D3) 50 mcg PO DAILY 12/29/20 12/29/20 History [Vitamin D3] escitalopram oxalate 10 mg PO DAILY 12/29/20 12/29/20 History memantine 5 mg PO QPM 12/29/20 12/29/20 History Patient History Medical History Anemia Anxiety Aortic stenosis Dementia Depression Diabetes GERD (gastroesophageal reflux disease) HLD (hyperlipidemia) HTN (hypertension) Hypothyroid Ischemic heart disease No pertinent family history UTI (urinary tract infection) Surgical History No pertinent past surgical history Family History Other Family history non-contributory Social History Smoking Status: Never smoker Second Hand Exposure: No; Hx Alcohol Use: No Hx Substance Use: No Preferred Language: Lithuanian Communication Ability: Impaired 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 She is sleeping but easily awoken. She answers some questions appropriately. She currently states that she is having some left hip discomfort. On examination of the left lower extremity it is slightly shortened and externally rotated compared to the right. And just doing gentle range of motion of the left hip causes her discomfort with flexion extension. She has mild pain with internal and external rotation. Mild pain with abduction. Examining the right lower extremity, she has some mild pain in the right knee during range of motion which she states she has had for some time. She is able to through gentle range of motion of the ankles bilaterally. She denies any pain in the shoulders, elbows, wrists. Range of motion is within normal limits. There is no gross motor or sensory loss seen at this time. He denies any cervical, thoracic, lumbar pain at this time. Results & Data ([facility]) Vital Signs (Past 12 Hours) Vital Signs Temp Pulse Resp BP Pulse Ox Pulse Ox 12/30/20 09:00 97 12/30/20 08:29 37.4 C 66 16 119/68 93 12/30/20 05:24 93 12/29/20 22:38 37 C 89 18 153/67 H 93 Diagnostic Findings Patient: SOSA MAX AAdmit Date: 12/29/20MR#: [id number] DRAcct ID:[id number]: HEARTHSIDEBirth Date: [address] Zip: [place], [place] [address]Qox: 85Location: 3NSex: FRoom/Bed: [id number] Phy: Tiff Rae MDDiagnosis: left hip fracturePri Phy: [facility]ard [facility] Date: 12/30/20Fam Phy:Interpreting Phy: Rajat Contreras MDAdmit Phy: Brianda Porter D.OJerrod Ordering Phy: Harish Barron PA-C cc: ~ CT hip LT wo con CLINICAL HISTORY: Femoral neck fracture. COMPARISON STUDY: Left hip radiographs December 29, 2020. TECHNIQUE: Axial images of the left hip were obtained without IV contrast. Sagittal and coronal reconstructions were viewed. Automated exposure control was utilized for the study. A dose lowering technique was utilized adhering to the principles of ALARA. FINDINGS: Note is made of an acute impacted mildly displaced subcapital left femoral neck fracture. No additional fractures are identified within visualized portions of the left hemipelvis. No osseous lesion is noted. A left hip joint effusion is present. There is possible intramuscular hemorrhage within the left adductor muscles. IMPRESSION: 1. Acute impacted mildly displaced subcapital left femoral neck fracture. 2. Prominence of the left adductor muscles. Intramuscular hemorrhage cannot be excluded. (1) Closed fracture of left hip Encounter type: initial encounter Qualified Code(s): S72.002A - Fracture of unspecified part of neck of left femur, initial encounter for closed fracture
[2020-12-30] MEDS: MoRPHine SULFATE 2 MG/ML CARP IV PRN (10:00)
--- NOTE | 2020-12-30 10:01 | Hospitalist Progress Note ---
Date of Service December 30, 2020 Assessment & Plan (1) Closed fracture of left hip: 85yo female with impacted subcapital fracture of the left femur after a fall yesterday at her snf. -Pain is well controlled with Tylenol, Oxycodone and Morphine PRN. -Solomon catheter in place -Patient remained NPO pending ortho evaluation -Ortho consult appreciated: Patient is scheduled for ORIF today (2) Acute UTI (urinary tract infection): -UA suggestive of infection with +bacteria -Urine cultures grew gram negative bacilli -Ceftriaxone 1gm IV daily -Continue Saccharomyces home medication (3) CHI (closed head injury): -Patient has bruise over left eyelid. No headaches. No neurological deficits. Patient is not on any blood thinners or antiplatelets. -Neuro checks (4) Hypothyroid: -Chronic. Last TSH within normal limits at 1.070 on 09/14/20 -Continue Synthroid (5) HLD (hyperlipidemia): -Chronic -Continue Atorvastatin 10mg po qHS (6) Depression: -Chronic. -Continue escitalopram (7) Dementia: -Patient oriented x 1 -Continue Memantine -Continue Aricept -Frequent orientation with delirium prevention strategies F/E/N - LR at 80mL/hr after midnight. Continue until after surgery and tolerating PO. electrolytes WNL - check Mg and PO4 and replete as needed, NPO after midnight Ppx - SCDs Code - Full Dispo - Admit to medical Admission and Anticipated Discharge Date Admission Date: December 29, 2020 Supervising Physician Co-Signing Physician Notes Medical Student Supervision Note: I was personally present during medical student patient encounter and independently interviewed and examined the patient and verified the murphy history and physical, reviewed labs and image studies, discussed the case with Ginna Golden and agree with the findings and care plan. Left hip fracture after mechanical fall - for repair today. continue with pain control. Acute UTI - treat with ceftriaxone. Dementia - supportive care. Subjective Carylbest Gaytan is an 85yo female with underlying dementia who presented with a left hip fracture after a mechanical fall yesterday. She was found down in her room at [facility] after falling. She was brought to the ER and she was noted to be a poor historian. She didn't recall incidents leading up to the fall. She did strike her head when she fell, and was noted to have a bruise over the left eye. In ER, patient also had findings concerning for possible UTI. She was given a dose of IV Ceftriaxone. This morning, she was laying in bed, on her left side, when I walked in. She reported feeling sleepy, although she had gotten good sleep last night. She appeared initially confused, stating that she had been brought in by her [id number] because she wasnt feeling so good. She did not remember falling or report any pain in her hip. She denies CP/palpitations or syncope. She rep orted some achiness in both knees but stated that is not new to her. She denies fever, chills, cough, headache, SOB, abdominal pain, nausea, vomiting, diarrhea or constipation. When I saw her about an hour later, she reported some discomfort in her back and left hip, stating that it might be due to her laying down in that position for some time. Review of Systems Constitutional: no fever and no chills Cardiovascular: no chest pain, no dyspnea and no lightheadedness Gastrointestinal: no abdominal pain, no nausea and no vomiting Genitourinary: no problem reported Musculoskeletal: left hip pain, back pain, knee aches Integumentary: bruise above left eye Neurologic: no headache(s) Physical Exam Eyes: + anicteric sclerae and EOM intact bilaterally Neck: trachea midline, no thyromegaly Respiratory: normal respiratory effort, lungs clear to auscultation Cardiovascular: RRR, no murmur, no edema Gastrointestinal (Abdomen): normal bowel sounds, soft, nontender, no hepatosplenomegaly Musculoskeletal: Extremities: extremities normal to inspection tenderness at hip joint area Skin: warm, dry, bruise over left eye Psychiatric: A+Ox3, euthymic affect Orientation: cooperative Genitourinary: solomon in place Results & Data Results & Data ([facility]) Vital Signs (Past 12 Hours) Vital Signs Temp Pulse Resp BP Pulse Ox Pulse Ox 12/30/20 09:00 97 12/30/20 08:29 37.4 C 66 16 119/68 93 12/30/20 05:24 93 12/29/20 22:38 37 C 89 18 153/67 H 93 (1) CHI (closed head injury) Encounter type: initial encounter Qualified Code(s): S09.90XA - Unspecified injury of head, initial encounter (2) Dementia Dementia behavioral disturbance: without behavioral disturbance Dementia type: unspecified type Qualified Code(s): F03.90 - Unspecified dementia without behavioral disturbance (3) Depression Active/Remission status: remission status unspecified Depression Type: major depressive disorder Major depression recurrence: unspecified whether recurrent Qualified Code(s): F32.9 - Major depressive disorder, single episode, unspecified (4) HLD (hyperlipidemia) Hyperlipidemia type: unspecified Qualified Code(s): E78.5 - Hyperlipidemia, unspecified (5) Hypothyroid Hypothyroidism type: unspecified Qualified Code(s): E03.9 - Hypothyroidism, unspecified (6) Closed fracture of left hip Encounter type: initial encounter Qualified Code(s): S72.002A - Fracture of unspecified part of neck of left femur, initial encounter for closed fracture
[2020-12-30] MEDS ORDERED: LACTATED RINGER'S 1,000 ML IV SCH (10:15)
--- NOTE | 2020-12-30 13:02 | Electrocardiogram Report ---
Test Reason : Blood Pressure : / mmHG Vent. Rate : 074 BPM Atrial Rate : 074 BPM P-R Int : 206 ms QRS Dur : 070 ms QT Int : 356 ms P-R-T Axes : 079 057 052 degrees QTc Int : 395 ms Sinus rhythm with marked sinus arrhythmia Low voltage QRS Borderline ECG When compared with ECG of 21-SEP-2020 19:21, No significant change was found Confirmed by Eddy Taylor ([id number]) on 12/30/2020 1:01:56 PM Referred By: [facility] Confirmed By:Eddy Taylor
--- NOTE | 2020-12-30 14:34 | Anesthesiology Consultation ---
Date of Service December 30, 2020 Assessment & Plan Chart Review Chart reviewed. Pt has history of aortic stenosis. Echocardiogram indicated preoperatively. Echo ordered. History Surgery Operation Date: 12/30/20 08:00 Proposed Procedures p Left Hip Cannulated Screw Open Reduction Internal Fixation - Messi Meade MD s Bipolar Hemiarthroplasty - Messi Meade MD Height/Weight Height: 5 ft 6 in Weight: 80.5 kg Allergies Allergy/AdvReac Type Severity Reaction Status Date / Time meperidine Allergy Unknown Unknown Verified 12/29/20 17:56 Medications Home Medications Medication Instructions Recorded Confirmed Last Taken Saccharomyces boulardii 250 mg PO BID 09/21/20 12/29/20 09/21/20 08:00 acetaminophen 650 mg PO Q6H PRN MDD 3 GMS 09/21/20 12/29/20 Unknown APAP/24 HOURS atorvastatin 10 mg PO HS 09/21/20 12/29/20 09/20/20 20:00 carbidopa-levodopa 1 tab PO TID 09/21/20 12/29/20 09/21/20 16:00 cyanocobalamin (vitamin B-12) 1,000 mcg PO DAILY 09/21/20 12/29/20 09/21/20 08:00 [Vitamin B-12] donepezil 10 mg PO HS 09/21/20 12/29/20 09/21/20 20:00 levothyroxine 75 mcg PO DAILY 09/21/20 12/29/20 09/21/20 05:30 melatonin 3 mg PO HS 09/21/20 12/29/20 09/20/20 20:00 multivitamin, stress formula 1 tab PO DAILY 09/21/20 12/29/20 09/21/20 08:00 [Stress Formula] cholecalciferol (vitamin D3) 50 mcg PO DAILY 12/29/20 12/29/20 Unknown [Vitamin D3] escitalopram oxalate 10 mg PO DAILY 12/29/20 12/29/20 Unknown memantine 5 mg PO QPM 12/29/20 12/29/20 Unknown Active Medications Generic Name Dose Route Start Last Admin Trade Name Freq PRN Reason Stop Dose Admin Atorvastatin Calcium 10 mg 12/29/20 21:30 12/29/20 22:35 Atorvastatin 10 Mg Tab PO 01/28/21 21:29 10 mg HS NICOLASA Administration Carbidopa/Levodopa 1 tab 12/29/20 21:30 12/30/20 13:19 Carbidopa/Levodopa 25/100mg Tab PO 01/28/21 21:29 1 tab TID NICOLASA Administration Donepezil HCl 10 mg 12/29/20 21:30 12/29/20 22:33 Donepezil Hcl 10 Mg Tab PO 01/28/21 21:29 10 mg HS NICOLASA Administration Escitalopram Oxalate 10 mg 12/30/20 09:00 12/30/20 07:45 Escitalopram Oxalate 10 Mg Tab PO 01/29/21 08:59 10 mg DAILY NICOLASA Administration Lactated Ringer's 1,000 mls @ 80 mls/hr 12/30/20 10:15 12/30/20 10:34 Lr IV 01/29/21 10:14 80 mls/hr .[id number] NICOLASA Administration Levothyroxine Sodium 75 mcg 12/30/20 06:30 12/30/20 05:45 Levothyroxine Sodium 75 Mcg Tablet PO 01/29/21 06:29 75 mcg DAILYBB NICOLASA Administration Melatonin 3 mg 12/29/20 21:30 12/29/20 22:35 Melatonin 3 Mg Tab PO 01/28/21 21:29 3 mg HS NICOLASA Administration Memantine 5 mg 12/29/20 21:30 12/29/20 22:36 Memantine Hcl 5 Mg Tab PO 01/28/21 21:29 5 mg QPM NICOLASA Administration Morphine Sulfate 1 mg 12/29/20 21:10 12/30/20 10:00 Morphine Sulfate 2 Mg/Ml Carp IV 01/12/21 21:09 1 mg Q4H PRN Administration Pain (1,2,3,4,5) & Pre PT Nystatin 1 appln 12/29/20 21:10 12/30/20 07:45 Nystatin Oint 15 Gm Tube EXT 01/28/21 21:09 1 appln BID NICOLASA Administration Saccharomyces Boulardii 250 mg 12/29/20 21:30 12/30/20 07:45 Saccharomyces Boulardii 250 Mg Cap PO 01/28/21 21:29 250 mg BID NICOLASA Administration Senna/Docusate Sodium 2 tab 12/29/20 21:30 12/29/20 22:36 Docusate Sodium/Senna 50/8.6mg Tab PO 01/28/21 21:29 2 tab HS NICLOASA Administration NPO Date Last Intake of Fluids: 12/29/20 Time Last Intake of Fluids: 23:59 Date Last Intake of Solids: 12/29/20 Time Last Intake of Solids: 23:59 Past Medical History Medical History Anemia Anxiety Aortic stenosis Dementia Depression Diabetes GERD (gastroesophageal reflux disease) HLD (hyperlipidemia) HTN (hypertension) Hypothyroid Ischemic heart disease No pertinent family history UTI (urinary tract infection) Past Family History Family History Other Family history non-contributory Past Surgical History Surgical History No pertinent past surgical history Social History Smoking Status: Never smoker Do You Dip or Chew Tobacco: No Hx Alcohol Use: No Hx Substance Use: No Physical Exam Vital Signs Last Vital Signs Temp 37.4 C 12/30/20 08:29 Pulse 66 12/30/20 08:29 Resp 16 12/30/20 08:29 BP 119/68 12/30/20 08:29 Pulse Ox 97 12/30/20 09:00 Testing Laboratory Results 12/30/20 08:26 12/30/20 08:26 PT 10.6 Seconds (9.0-12.0) 12/29/20 17:00 INR 1.0 (0.9-1.1) 12/29/20 17:00 APTT 26.8 Seconds (21.0-31.0) 12/29/20 17:00 Urine Color Yellow 12/29/20 17:00 Urine Appearance Clear (Clear) 12/29/20 17:00 Urine pH 7.5 (4.5-7.5) 12/29/20 17:00 Ur Specific [place] 1.015 (1.000-1.030) 12/29/20 17:00 Urine Protein Trace (Negative) H 12/29/20 17:00 Urine Glucose (UA) Negative (Negative) 12/29/20 17:00 Urine Ketones Negative (Negative) 12/29/20 17:00 Urine Nitrite Negative (Negative) 12/29/20 17:00 Ur Leukocyte Esterase 2+ (Negative) H 12/29/20 17:00 Urine WBC (Auto) >30 /hpf (0-5) H 12/29/20 17:00 Urine RBC (Auto) 5-10 /hpf (0-4) H 12/29/20 17:00 U Hyaline Cast (Auto) 0 /lpf (0-5) 12/29/20 17:00 U Epithel Cells (Auto) 0-5 /lpf (0-5) 12/29/20 17:00 Urine Bacteria (Auto) 2+ (Negative) H 12/29/20 17:00 Blood Type O Positive 12/29/20 17:00 Antibody Screen NEGATIVE 12/29/20 17:00 12/29/20 17:00 Urine Culture - Preliminary Urine,Clean Catch Gram negative bacilli
[2020-12-30] MEDS ORDERED: fentaNYL citrate 100 MCG/2 ML VIAL ONE ×4 (14:37→18:16)
[2020-12-30] MEDS ORDERED: DEXAMETHASONE SOD INJ 4 MG/ML VIAL ONE (14:39)
[2020-12-30] MEDS ORDERED: ONDANSETRON INJ 2 MG/ML 2 ML VIAL ONE (14:39)
[2020-12-30] MEDS ORDERED: MIDAZOLAM HCL 1 MG/ML 2ML VIAL ONE (14:39)
[2020-12-30] MEDS ORDERED: LIDOCAINE HCL 2% 2 ML VIAL/AMP(20MG/ML) INFIL ONE (14:39)
[2020-12-30] MEDS ORDERED: PROPOFOL IV EMULSION 10 MG/ML 20 ML VIAL IV ONE (14:39)
--- NOTE | 2020-12-30 15:59 | XCELERA ---
[id number]
[2020-12-30] MEDS ORDERED: BACITRACIN INJ 50,000 UNIT VIAL ONE (16:18)
--- NOTE | 2020-12-30 16:19 | History & Physical Bridge Note ---
Date of Service December 30, 2020 History & Physical Bridge Note I have examined the patient, reviewed the History & Physical and in the interval since the performance of the History & Physical I have noted the following changes of clinical significance: no changes noted
[2020-12-30] MEDS ORDERED: BUPIVACAINE 0.5 % 5 MG/1 ML PF 10ML VIAL ONE (16:23)
[2020-12-30] MEDS ORDERED: GLYCOPYRROLATE 0.2 MG/ML VIAL ONE (17:04)
[2020-12-30] MEDS ORDERED: SODIUM CHLORIDE 0.9% INJ 10 ML VIAL ONE (17:05)
[2020-12-30] MEDS ORDERED: ceFAZolin 1000MG 1,000 MG/7.5 ML SYR IV ONE (17:09)
[2020-12-30] MEDS ORDERED: PHENYLEPHRINE 100MCG/ML 5ML SYR ONE (17:26)
[2020-12-30] MEDS ORDERED: ESMOLOL HCL INJ 10 MG/ML 10ML VIAL IV ONE (17:26)
[2020-12-30] MEDS ORDERED: ePHEDrine sulfate 50 MG/ML SYR ONE (17:26)
--- NOTE | 2020-12-30 18:00 | Operative Report ---
Post Operative Report Pre & Post Diagnosis Operation Date: 12/30/20 14:00 Pre-Op Diagnosis: Closed fracture valgus impacted femoral neck of left hip Post-Op Diagnosis: Closed fracture valgus impacted femoral neck of left hip I identified the patient and participated in the time-out.: Yes Procedure Operation Date: 12/30/20 14:00 Actual Procedures p Left valgus impacted femoral neck fracture internal fixation with cannulated screws- Messi Meade MD Surgeon Messi Meade MD Water Softener Installer Gerry EASLEY Estimated Blood Loss 10 Findings Consistent with Post-Op Diagnosis Specimens None Drains None Anesthesia Type General Complications none Disposition Accompanied Patient To Recovery: No Disposition: Recovery Room Indications 85-year-old female presents with a closed valgus impacted femoral neck fracture. Patient is a minimal ambulator. Patient has dementia. Description of Procedure Patient was taken to the operating room anesthetized under spinal anesthesia with sedation. Patient position on a fracture table. The left lower extremity was placed into boot traction and the opposite leg was placed into the well leg avery well-padded position in some flexion and internal rotation. Minimal traction was placed on the extremity just enough to position and stabilize the fracture. Fluoroscopy C-arm was brought in to visualize the left hip. The fracture was lined up satisfactorily on AP and lateral views. The hip was then sterilely prepped and draped in usual sterile fashion. Fluoroscopy was brought in and the level of fracture and trochanter area of the hip were documented and marked and then a small longitudinal incision was made over the lateral greater trochanteric area. Skin incised sharply. The subcutaneous tissues were dissected down to the fascia. The fascia monik was divided longitudinally. Under fluoroscopic guidance 3 parallel guidewires were placed in an inverted triangle fashion coursing across the fracture site. Screw lengths were measured and three 7.3 mm cannulated screws were advanced across the fracture with good fixation. The guidewires were removed the wound was irrigated then the fascia was closed with interrupted [id number] #1 Vicryl sutures the subcutaneous tissues were closed with a 2-0 Vicryl and the skin was closed with ayanna and sterile dressings were applied. I attest to the content of the Intraoperative Record and any orders documented therein. Any exceptions are noted below.
--- NOTE | 2020-12-30 18:06 | Fluoroscopy Report ---
FL hip LT 2-3V CLINICAL HISTORY: LEFT CANNULATED SCREWS VS. BIPOLAR HIP COMPARISON STUDY: 12/29/2020 FLUOROSCOPY TIME: 62 seconds. NUMBER OF FLUOROSCOPIC IMAGES: 3 FINDINGS: 3 intraoperative fluoroscopic spot images demonstrate internal fixation of a subcapital lef t hip fracture with 3 cannulated screws. IMPRESSION: Intraoperative fluoroscopic spot images demonstrating internal fixation of a subcapital left hip fracture with 3 cannulated screws ACT 112: Negative or not required by law. Electronically signed by: Tomas Carney M.D. 12/30/2020 6:05 PM
[2020-12-30] MEDS ORDERED: ATROPINE SULFATE 0.1 MG/ML 10ML SYR IV PRN (18:14)
[2020-12-30] MEDS ORDERED: ePHEDrine sulfate 50 MG/ML AMP IV PRN (18:14)
[2020-12-30] MEDS ORDERED: fentaNYL citrate 100 MCG/2 ML VIAL IV PRN (18:14)
[2020-12-30] MEDS ORDERED: ONDANSETRON INJ 2 MG/ML 2 ML VIAL IV PRN ×2 (18:14→19:31)
[2020-12-30] MEDS ORDERED: HYDROmorphone INJ 2 MG/ML SYR/VIAL IV PRN (18:14)
[2020-12-30] MEDS ORDERED: LORazepam 2 MG/4 ML VIAL ONE (18:22)
[2020-12-30] MEDS ORDERED: LORazepam 0.5 MG/1 ML VIAL IV ONE (18:45)
[2020-12-30] MEDS ORDERED: cefTRIAXone SODIUM 2,000 MG in DEXTROSE 5% 50 ML IV SCH (19:00)
--- NOTE | 2020-12-30 19:01 | Anesthesiology Progress Note ---
Date of Service December 30, 2020 Anesthesia Post Procedure Vital Signs Vital Signs: Temp Pulse Pulse Pulse Resp BP BP 12/30/20 18:50 36.2 C L 99 H 20 116/56 L 12/30/20 18:40 93 H 18 125/67 12/30/20 18:30 120 H 18 103/57 L 12/30/20 18:20 123 H 16 143/68 H 12/30/20 18:10 93 H 18 159/79 H 12/30/20 18:08 36.7 C 115 H 22 165/89 H 12/30/20 14:50 37.4 C 70 18 12/30/20 09:00 12/30/20 08:29 37.4 C 66 16 12/30/20 05:24 12/29/20 22:38 37 C 89 18 12/29/20 21:00 37.7 C H 65 18 12/29/20 20:45 37.7 C H 65 18 12/29/20 20:40 68 18 138/90 12/29/20 19:54 67 21 BP Pulse Ox Pulse Ox 12/30/20 18:50 93 12/30/20 18:40 92 12/30/20 18:30 88 L 12/30/20 18:20 87 L 12/30/20 18:10 96 12/30/20 18:08 96 12/30/20 14:50 128/70 94 12/30/20 09:00 97 12/30/20 08:29 119/68 93 12/30/20 05:24 93 12/29/20 22:38 153/67 H 93 12/29/20 21:00 171/73 H 95 12/29/20 20:45 171/73 H 95 93 12/29/20 20:40 94 12/29/20 19:54 152/72 H 93 Pain Intensity Left Hip: Pain Intensity: 7 Transfer of Care Handoff Completed per policy Notes Mental Status: alert / awake / arousable and participated in evaluation Patient Amnestic to Procedure: Yes Nausea / Vomiting: adequately controlled Pain: adequately controlled Airway Patency, RR, SpO2: stable & adequate BP & HR: stable & adequate Hydration State: stable & adequate Anesthetic Complications: no major complications apparent and Pt Satisfied with anesthetic care Notes: pt combative in pacu. gave ativan which calmed her down
[2020-12-30] MEDS ORDERED: bisacodyL 10 MG SUPP PR PRN (19:31)
[2020-12-30] MEDS ORDERED: MAGNESIUM HYDROXIDE SUSP 30 ML UDC PO PRN (19:31)
[2020-12-30] MEDS ORDERED: NALOXONE HCL 0.4 MG/1 ML VIAL/CARP IV PRN (19:31)
[2020-12-30] MEDS ORDERED: METOCLOPRAMIDE HCL INJ 5 MG/ML 2 ML VIAL IV PRN (19:31)
[2020-12-30] MEDS: SODIUM CHLORIDE 0.9% 1000ML 1,000 ML IV SCH (20:37)
[2020-12-30] MEDS ORDERED: GLUCOSE 10 TABS/TUBE PO PRN (20:39)
[2020-12-30] MEDS ORDERED: CARBOHYDRATES FOR HYPOGLYCEMIA PO PRN (20:39)
[2020-12-30] MEDS ORDERED: DEXTROSE 50% 50 ML SYRINGE IV PRN (20:39)
[2020-12-30] MEDS ORDERED: GLUCAGON FOR INJ 1 MG VIAL SQ PRN (20:39)
[2020-12-30] MEDS ORDERED: GLUCOSE 40% GEL 15 GM TUBE PO PRN (20:39)
[2020-12-30] MEDS: INSULIN ASPART 100 UNITS/ML 3 ML PEN SC SCH (21:47)
[2020-12-30] MEDS: SENNA 8.6 MG TAB PO SCH (21:58)
[2020-12-30] MEDS: DOCUSATE SODIUM 100 MG CAP PO SCH (21:59)
[2020-12-30] MEDS: ASPIRIN 81 MG ECTAB PO SCH (21:59)
[2020-12-30] MEDS: DOCUSATE SODIUM/SENNA 50/8.6MG TAB PO SCH (21:59)
[2020-12-30] MEDS: ATORVASTATIN 10 MG TAB PO SCH (22:01)
[2020-12-30] MEDS: MEMANTINE HCL 5 MG TAB PO SCH (22:02)
[2020-12-30] MEDS: DONEPEZIL HCL 10 MG TAB PO SCH (22:02)
[2020-12-30] MEDS: MELATONIN 3 MG TAB PO SCH (22:03)
[2020-12-31] MEDS: MoRPHine SULFATE 2 MG/ML CARP IV PRN (04:26)
[2020-12-31] MEDS: LEVOTHYROXINE SODIUM 75 MCG TABLET PO SCH (05:27)
[2020-12-31] MEDS: SODIUM CHLORIDE 0.9% 1000ML 1,000 ML IV SCH (05:36)
[2020-12-31 07:35] LABS: Hematocrit (blood only) 32.9 % (37-47); Hemoglobin 10.9 g/dL (12.0-16.0); Mean Corpuscular Hemoglobin 31.7 pg (25-34); Mean Corpuscular Hgb Conc 33.1 g/dL (32-36); Mean Corpuscular Volume 95.6 fL (80-100); Mean Platelet Volume 9.4 fL (7.4-10.4); Platelet Count 208 K/uL (130-400); RDW Coefficient of Variation 12.4 % (11.5-14.5); RDW Standard Deviation 43.3 fL (36.4-46.3); Red Blood Count 3.44 M/uL (4.2-5.4); White Blood Count 6.87 K/uL (4.8-10.8)
[2020-12-31 08:11] LABS: BUN Creatinine Ratio 18.2 (10-20); Calcium 9.2 mg/dl (8.5-10.1); Creatinine Clr Calc Pharmacy 28.8 ml/min; Est GFR (African American) 36.8; Est GFR (Non-African American) 31.8; Potassium 4.7 mmol/L (3.5-5.1)
--- NOTE | 2020-12-31 08:37 | Orthopedic Progress Note ---
Date of Service December 31, 2020 Assessment & Plan (1) Closed fracture of left hip: Left subcapital hip fracture impacted mildly displaced. Dr. Meade is to review the CT scan. Patient will likely need ORIF with 7.3 cannulated screws versus bipolar hemiarthroplasty. I have spoken to Dr. Rae. She states that the patient is stable for surgery. Plan for OR today pending Dr. Meade's evaluation. CT reviewed and impaction but no major angulation and satisfactory alignment for cannulated screws. Admission and Anticipated Discharge Date Admission Date: December 29, 2020 Postop day 1 status post ORIF left hip fracture with 7.3 cannulated screws. PT/OT protocols. 50% weightbearing. DVT prophylaxis-aspirin p.o. twice daily, SCDs Pain management as written. DC planning-turn to [facility] when medically stable. Subjective Postop day 1 Patient awake and alert. Pleasantly confused. Answers some questions appropriately. States she is having some pain from the left hip surgical area but otherwise has no complaints this morning. Physical Exam Physical Exam: Dressings are clean, dry, and intact. She has minimal swelling over the thigh. Calves are soft nontender. Neurovascular intact. Toes are mobile. Results & Data ([facility]) Vital Signs (Past 12 Hours) Vital Signs Temp Pulse Resp BP BP Pulse Ox 12/31/20 07:42 36.8 C 65 16 113/65 92 12/31/20 02:22 36.5 C 83 18 137/73 91 12/30/20 22:17 36.4 C L 85 18 143/80 H 94 12/30/20 21:18 36.1 C L 91 H 20 152/81 H 97 Laboratory Results Laboratory Results WBC 6.87 K/uL (4.8-10.8) 12/31/20 07:08 RBC 3.44 M/uL (4.2-5.4) L 12/31/20 07:08 Hgb 10.9 g/dL (12.0-16.0) L 12/31/20 07:08 Hct 32.9 % (37-47) L 12/31/20 07:08 MCV 95.6 fL (80-100) 12/31/20 07:08 MCH 31.7 pg (25-34) 12/31/20 07:08 MCHC 33.1 g/dL (32-36) 12/31/20 07:08 RDW Std Deviation 43.3 fL (36.4-46.3) 12/31/20 07:08 RDW Coeff of Marisol 12.4 % (11.5-14.5) 12/31/20 07:08 Plt Count 208 K/uL (130-400) 12/31/20 07:08 MPV 9.4 fL (7.4-10.4) 12/31/20 07:08 Immature Gran % (Auto) 0.0 % 12/30/20 08:26 Neut % (Auto) 54.0 % 12/30/20 08:26 Lymph % (Auto) 30.1 % 12/30/20 08:26 [place] % (Auto) 8.7 % 12/30/20 08:26 Eos % (Auto) 7.0 % 12/30/20 08:26 Baso % (Auto) 0.2 % 12/30/20 08:26 Neut # (Auto) 3.19 K/uL (1.4-6.5) 12/30/20 08:26 Lymph # (Auto) 1.77 K/uL (1.2-3.4) 12/30/20 08:26 [place] # (Auto) 0.51 K/uL (0.11-0.59) 12/30/20 08:26 Eos # (Auto) 0.41 K/uL (0-0.5) 12/30/20 08:26 Baso # (Auto) 0.01 K/uL (0-0.2) 12/30/20 08:26 Immature Gran # (Auto) 0.00 K/uL (0.00-0.02) 12/30/20 08:26 PT 10.6 Seconds (9.0-12.0) 12/29/20 17:00 INR 1.0 (0.9-1.1) 12/29/20 17:00 APTT 26.8 Seconds (21.0-31.0) 12/29/20 17:00 PTT Ratio 1.0 12/29/20 17:00 Sodium 135 mmol/L (136-145) L 12/31/20 07:08 Potassium 4.7 mmol/L (3.5-5.1) 12/31/20 07:08 Chloride 104 mmol/L (98-107) 12/31/20 07:08 Carbon Dioxide 25 mmol/L (21-32) 12/31/20 07:08 Anion Gap 6.0 (3-11) 12/31/20 07:08 BUN 27 mg/dl (7-18) H 12/31/20 07:08 Creatinine 1.47 mg/dl (0.6-1.2) H 12/31/20 07:08 Est Cr Clr Drug Dosing 28.8 ml/min 12/31/20 07:08 Est GFR ( Amer) 36.8 12/31/20 07:08 Est GFR (Non-Af Amer) 31.8 12/31/20 07:08 BUN/Creatinine Ratio 18.2 (10-20) 12/31/20 07:08 Glucose 127 mg/dl (70-99) H 12/31/20 07:08 POC Glucose 105 mg/dl (70-99) H 12/30/20 20:36 Calcium 9.2 mg/dl (8.5-10.1) 12/31/20 07:08 Phosphorus 3.2 mg/dl (2.5-4.9) 12/29/20 17:00 Magnesium 1.9 mg/dl (1.8-2.4) 12/29/20 17:00 Total Bilirubin 0.4 mg/dl (0.2-1) 12/30/20 08:26 Direct Bilirubin < 0.1 mg/dl (0-0.2) 12/30/20 08:26 AST 11 U/L (15-37) L 12/30/20 08:26 ALT 7 U/L (12-78) L 12/30/20 08:26 Alkaline Phosphatase 69 U/L (45-117) 12/30/20 08:26 Troponin I < 0.015 ng/ml (0-0.045) 12/29/20 17:00 NT-Pro-B Natriuret Pep 415 pg/ml (0-1800) 12/29/20 17:00 Total Protein 7.0 gm/dl (6.4-8.2) 12/30/20 08:26 Albumin 3.1 gm/dl (3.4-5.0) L 12/30/20 08:26 Globulin 4.5 gm/dl (2.5-4.0) H 12/29/20 17:00 Albumin/Globulin Ratio 0.8 (0.9-2) L 12/29/20 17:00 Urine Color Yellow 12/29/20 17:00 Urine Appearance Clear (Clear) 12/29/20 17:00 Urine pH 7.5 (4.5-7.5) 12/29/20 17:00 Ur Specific [place] 1.015 (1.000-1.030) 12/29/20 17:00 Urine Protein Trace (Negative) H 12/29/20 17:00 Urine Glucose (UA) Negative (Negative) 12/29/20 17:00 Urine Ketones Negative (Negative) 12/29/20 17:00 Urine Blood Trace (Negative) H 12/29/20 17:00 Urine Nitrite Negative (Negative) 12/29/20 17:00 Urine Bilirubin Negative (Negative) 12/29/20 17:00 Urine Urobilinogen Negative (Negative) 12/29/20 17:00 Ur Leukocyte Esterase 2+ (Negative) H 12/29/20 17:00 Urine WBC (Auto) >30 /hpf (0-5) H 12/29/20 17:00 Urine RBC (Auto) 5-10 /hpf (0-4) H 12/29/20 17:00 U Hyaline Cast (Auto) 0 /lpf (0-5) 12/29/20 17:00 U Epithel Cells (Auto) 0-5 /lpf (0-5) 12/29/20 17:00 Urine Bacteria (Auto) 2+ (Negative) H 12/29/20 17:00 Nasal Screen MRSA (PCR) Negative (Negative) 12/30/20 00:42 COVID-19 Eval Order [facility]FluRsv at [facility] 12/29/20 17:24 SARS-CoV-2 (PCR) NEGATIVE (Negative) 12/29/20 17:24 Influenza Type A (PCR) Negative (Neg) 12/29/20 17:24 Influenza Type B (PCR) Negative (Neg) 12/29/20 17:24 RSV (RT-PCR) Negative (Neg) 12/29/20 17:24 Blood Type O Positive 12/29/20 17:00 Antibody Screen NEGATIVE 12/29/20 17:00 Impressions Hip X-Ray 12/30/20 00:00 FL hip LT 2-3V CLINICAL HISTORY: LEFT CANNULATED SCREWS VS. BIPOLAR HIP COMPARISON STUDY: 12/29/2020 FLUOROSCOPY TIME: 62 seconds. NUMBER OF FLUOROSCOPIC IMAGES: 3 FINDINGS: 3 intraoperative fluoroscopic spot images demonstrate internal fixation of a subcapital left hip fracture with 3 cannulated screws. IMPRESSION: Intraoperative fluoroscopic spot images demonstrating internal fixation of a subcapital left hip fracture with 3 cannulated screws ACT 112: Negative or not required by law. (1) Closed fracture of left hip Encounter type: initial encounter Qualified Code(s): S72.002A - Fracture of unspecified part of neck of left femur, initial encounter for closed fracture
[2020-12-31] MEDS ORDERED: PIPERACILL/TAZOBAC CONSULT ACTIVE PRN (08:39)
--- NOTE | 2020-12-31 08:57 | Anesthesiology Progress Note ---
Date of Service December 31, 2020 Anesthesia Post Procedure Vital Signs Vital Signs: Temp Pulse Pulse Pulse Resp BP BP 12/31/20 07:42 36.8 C 65 16 113/65 12/31/20 02:22 36.5 C 83 18 137/73 12/30/20 22:17 36.4 C L 85 18 143/80 H 12/30/20 21:18 36.1 C L 91 H 20 152/81 H 12/30/20 20:30 12/30/20 20:13 35.8 C L 91 H 18 152/74 H 12/30/20 19:45 36.5 C 84 18 163/84 H 12/30/20 19:15 36.6 C 90 20 147/83 H 12/30/20 19:00 90 20 146/80 H 12/30/20 18:50 36.2 C L 99 H 20 116/56 L 12/30/20 18:40 93 H 18 125/67 12/30/20 18:30 120 H 18 103/57 L 12/30/20 18:20 123 H 16 143/68 H 12/30/20 18:10 93 H 18 159/79 H 12/30/20 18:08 36.7 C 115 H 22 165/89 H 12/30/20 14:50 37.4 C 70 18 128/70 12/30/20 09:00 Pulse Ox Pulse Ox 12/31/20 07:42 92 12/31/20 02:22 91 12/30/20 22:17 94 12/30/20 21:18 97 12/30/20 20:30 99 12/30/20 20:13 99 12/30/20 19:45 98 12/30/20 19:15 94 93 12/30/20 19:00 100 12/30/20 18:50 93 12/30/20 18:40 92 12/30/20 18:30 88 L 12/30/20 18:20 87 L 12/30/20 18:10 96 12/30/20 18:08 96 12/30/20 14:50 94 12/30/20 09:00 97 Pain Intensity Left Hip: Pain Intensity: 7 Notes Mental Status: alert / awake / arousable and participated in evaluation Patient Amnestic to Procedure: Yes (patient has dementia and is confused which is her baseline. ) Nausea / Vomiting: adequately controlled Pain: adequately controlled Airway Patency, RR, SpO2: stable & adequate BP & HR: stable & adequate Hydration State: stable & adequate Anesthetic Complications: no major complications apparent
[2020-12-31] MEDS ORDERED: PIPERACILLIN/TAZOBACTAM 3.375 GM in DEXTROSE 5% 100 ML IV ONE (09:00)
[2020-12-31] MEDS: oxyCODONE HCL IR 5 MG TAB (IMMEDIATE RELEASE) PO PRN ×2 (09:31→17:21)
[2020-12-31] MEDS: DOCUSATE SODIUM 100 MG CAP PO SCH ×2 (09:32→20:28)
[2020-12-31] MEDS: ASPIRIN 81 MG ECTAB PO SCH ×2 (09:32→20:28)
[2020-12-31] MEDS: ESCITALOPRAM OXALATE 10 MG TAB PO SCH (09:33)
[2020-12-31] MEDS: SACCHAROMYCES BOULARDII 250 MG CAP PO SCH ×2 (09:33→20:28)
[2020-12-31] MEDS: CARBIDOPA/LEVODOPA 25/100MG TAB PO SCH ×3 (09:34→20:31)
[2020-12-31] MEDS: MULTIVITAMIN TAB PO SCH (09:34)
[2020-12-31] MEDS: NYSTATIN OINT 15 GM TUBE EXT SCH ×2 (10:30→20:29)
[2020-12-31] MEDS: INSULIN ASPART 100 UNITS/ML 3 ML PEN SC SCH ×4 (10:32→20:35)
[2020-12-31] MEDS ORDERED: PIPERACILLIN/TAZOBACTAM 3.375 GM in DEXTROSE 5% 100 ML IV SCH (14:00)
--- NOTE | 2020-12-31 15:10 | Discharge Summary ---
Date of Service December 31, 2020 Admission HPI Per Admitting Provider Caryl Gaytan is an 85yo C female resident of [facility] presenting with fracture of left hip after a mechanical fall yesterday. Patient with underlying dementia as well as worsened confusion after receiving morphine and is unable to provide details of events prior to arrival. Majority of history obtained through discussion with ER staff and chart review. Per record review, patient was found down in her room yesterday after falling. She denies CP/palpitations or syncope. She did strike her head and was noted to have a bruise over the left eye. Patient had pain in the left hip - she continued to ambulate. An x-ray was performed at [facility] and patient found to have a left hip fracture therefore she was sent to [facility]. Patient complaining of mild left hip pain. She is not happy being in the ER and is somewhat frustrated that she has been here so long. Otherwise, no complaints. Specifically she denies fever, chills, cough, SOB, abdominal pain, nausea, vomiting, diarrhea or constipation. ER Course: Ceftriaxone 1gm, Morphine 2mg, Zofran 4mg, NSS Principal Diagnosis L hip fx Discharge Exam Constitutional WD/WN, vitals as above Eyes PERRL, conjunctivae normal, anicteric sclerae ENMT external ear and nose normal, oropharynx normal Respiratory normal respiratory effort, lungs clear to auscultation Cardiovascular RRR, no murmur, no edema Gastrointestinal (Abdomen) normal bowel sounds, soft, nontender, no hepatosplenomegaly Musculoskeletal L Hip TTP Skin no rashes, warm and dry Psychiatric Orientation: alert, oriented to person and oriented to time; + not oriented to place Discharge Data Allergies Allergy/AdvReac Type Severity Reaction Status Date / Time meperidine Allergy Unknown Unknown Verified 12/29/20 17:56 Consultations 12/29/20 19:32 ED Decision to Admit Stat 12/29/20 21:10 Consult Orthopedic Surgery Routine Procedures Performed Operation Date: 12/30/20 14:00 Actual Procedures p Left Hip Cannulated Screw Open Reduction Internal Fixation(Left) - Messi Meade MD Ordered Studies 12/29/20 17:34 CT head/brain wo con Stat 12/30/20 FL fluoroscopy <1hr Routine FL hip LT 2-3V Routine 12/30/20 07:17 CT hip LT wo con Urgent Hospital Course (1) Closed fracture of left hip: 85yo female with impacted subcapital fracture of the left femur after a fall yesterday at her shelter. Found to have Closed fracture valgus impacted femoral neck of left hip. The following is the medical management during stay here: L Hip Fx -imaging showing Left subcapital hip fracture impacted mildly displaced -Postop day 1 status post ORIF left hip fracture with 7.3 cannulated screws -Pain is well controlled with Tylenol, Oxycodone and Morphine PRN. Rx for oxycodone sent in -PT/OT protocol per discharge instruction written below: 50% weightbearing -DVT prophylaxis-aspirin p.o. twice daily -Please schedule appt with [facility] with number provided below in 10-14 days as instructed H/O Ischemic heart disease -Pt denied chest pain at rest or with exertion. Her EKG did not show evidence of ischemia -ECHO done here: LV function is normal. Mild concentric LVH. The LA is mildly dilated. No significant valvular heart disease. Acute UTI (urinary tract infection): -UA suggestive of infection with +bacteria -Urine cultures grew E Coli ESBL with mixed sensitivities -Ceftriaxone 1gm IV daily initially here, was resistant so switched to IV Zosyn. On discharge to cont PO Bactrim x3 additional days -Continued Saccharomyces home medication CHI (closed head injury): -Patient has bruise over left eyelid. No headaches. No neurological deficits. Patient is not on any blood thinners or antiplatelets. -stable here Hypothyroid: -Chronic. Last TSH within normal limits at 1.070 on 09/14/20 -Continued Synthroid HLD (hyperlipidemia): -Continued Atorvastatin 10mg po qHS Depression: -Continued escitalopram Dementia: -Continued Memantine -Continued Aricept -Frequent orientation with delirium prevention strategies. Pt appeared mildly delirious on day of discharge, likely 2/2 new environment/hospitalization. Total Time Total Time Spent Total Time Spent (In Minutes): 30 Discharge Plan Discharge Items Patient Disposition: Trans Resident Long-Term Care Reason For Visit: left hip fracture Discharge Diagnosis: Left subcapital hip fracture Activity: Per Instructions section Weightbearing: Left partial Weightbearing Comment: 50% weightbearing on the left lower extremity with walker. Non-emergency contact: Surgeon Call non-emergency contact if: your pain is not controlled, your temperature is above 101.5, your wound has increased redness and your wound has increased drainage Follow-up/Referrals: [facility] [Primary Care Provider] - Diet: Heart Healthy Brendon Attending Provider Instructions: 85yo female with impacted subcapital fracture of the left femur after a fall yesterday at her shelter. Found to have Closed fracture valgus impacted femoral neck of left hip. The following is the medical management during stay here: L Hip Fx -imaging showing Left subcapital hip fracture impacted mildly displaced -Postop day 1 status post ORIF left hip fracture with 7.3 cannulated screws -Pain is well controlled with Tylenol, Oxycodone and Morphine PRN. Rx for oxycodone sent in -PT/OT protocol per discharge instruction written below: 50% weightbearing -DVT prophylaxis-aspirin p.o. twice daily -Please schedule appt with [facility] with number provided below in 10-14 days as instructed H/O Ischemic heart disease -Pt denied chest pain at rest or with exertion. Her EKG did not show evidence of ischemia -ECHO done here: LV function is normal. Mild concentric LVH. The LA is mildly dilated. No significant valvular heart disease. Acute UTI (urinary tract infection): -UA suggestive of infection with +bacteria -Urine cultures grew E Coli ESBL with mixed sensitivities -Ceftriaxone 1gm IV daily initially here, was resistant so switched to IV Zosyn. On discharge to cont PO Bactrim x3 additional days -Continued Saccharomyces home medication CHI (closed head injury): -Patient has bruise over left eyelid. No headaches. No neurological deficits. Patient is not on any blood thinners or antiplatelets. -stable here Hypothyroid: -Chronic. Last TSH within normal limits at 1.070 on 09/14/20 -Continued Synthroid HLD (hyperlipidemia): -Continued Atorvastatin 10mg po qHS Depression: -Continued escitalopram Dementia: -Continued Memantine -Continued Aricept -Frequent orientation with delirium prevention strategies. Pt appeared mildly delirious on day of discharge, likely 2/2 new environment/hospitalization. Addtl Marriage Performer Provider Instructions: [facility] DISCHARGE INSTRUCTIONS: HIP FRACTURE SELF CARE INSTRUCTIONS: A. You are to ambulate with a walker or crutches for approximately 6 weeks. B. You are PARTIAL WEIGHT BEARING on your operative lower extremity for at least 6 weeks. C. Wear low heeled shoes with non-slip soles D. Be sure that your floors are free of things that could trip you throw rugs, electrical cords, and small objects. Avoid wet and waxed floors, especially with crutches/walker/cane. E. Try to walk several times a day with rest periods between. F. You may shower 48 hours after surgery and get the incision area wet, but DO NOT soak or submerge incision area in water. (No baths, swimming pools, hot tubs) G. You may have a large, band-aid like dressing over your incision (Aquacel). This will remain on your incision for 7 days, and then can be removed. You CAN shower with this on. If incision is leaking through the dressing, please call the office . H. Do NOT apply soap or any ointment/lotions directly over incision. I. You may use ice as needed to operative site. SPECIAL CARE INSTRUCTIONS: VERY IMPORTANT TO READ AND REVIEW A. You may be at risk for phlebitis or blood clots. a. Wear surgical stockings (SHARON hose) for 2 weeks after surgery to improve circulation and reduce swelling. b. Take ASPIRIN 81 po BID for 4 weeks or as directed. This is your blood thinner. . B. There are a few signs you need to watch for after you are home. Call [facility] at [phone] if you experience any of the following: a. If you have a temperature of 101 degrees or higher. b. Sudden increase in pain in your hip not relieved by rest or pain medication. c. Any fluid or drainage from the incision; redness of the incision. d. Shortness of breath or chest pain. . C. Call your physician if: a. Temperature is greater than 101 degrees (F). b. Pain is not relieved by prescribed pain medications. c. Increase drainage or redness from incision. d. Unanswered questions or concerns. D. Pain Medication: a. You will be prescribed pain medication upon discharge that should last till your first post-operative appointment. b. If you experience nausea and/or skin rash, discontinue this medication and contact our office for an alternative medication. c. Caution- narcotic pain medication can cause constipation. FOLLOW UP VISIT: Please call [facility] at [phone] to schedule a follow up appointment 10-14 days from the date of your surgery date. Pending Studies at Discharge: No Stand-Alone Forms: My [facility] Skilled Items Patient informed of condition?: Yes DNR: No Discharge Level of Care: Skilled Communicable Disease: No Discharge Prognosis: Stable Lines: None Urinary Catheter: No Medications and DC Order Prescriptions: New sulfamethoxazole-trimethoprim [Bactrim DS] 800-160 mg tablet 1 tab PO DAILY 3 Days Qty: 3 RF: 0 aspirin 81 mg tablet,delayed release (DR/EC) 81 mg PO BID 30 Days Qty: 60 RF: 0 Continued acetaminophen 325 mg Tablet 650 mg PO Q6H MDD 3 GMS APAP/24 HOURS PRN (Reason: Fever Or Pain) RF: 0 atorvastatin 10 mg tablet 10 mg PO HS RF: 0 donepezil 10 mg tablet 10 mg PO HS RF: 0 cyanocobalamin (vitamin B-12) [Vitamin B-12] 1,000 mcg Tablet 1,000 mcg PO DAILY RF: 0 melatonin 3 mg Tablet 3 mg PO HS RF: 0 levothyroxine 75 mcg tablet 75 mcg PO DAILY RF: 0 carbidopa-levodopa 25-100 mg tablet 1 tab PO TID RF: 0 Stress Formula Tablet 1 tab PO DAILY RF: 0 Saccharomyces boulardii 250 mg Capsule 250 mg PO BID RF: 0 escitalopram oxalate 10 mg tablet 10 mg PO DAILY RF: 0 memantine 5 mg tablet 5 mg PO QPM RF: 0 cholecalciferol (vitamin D3) [Vitamin D3] 50 mcg (2,000 unit) Tablet 50 mcg PO DAILY RF: 0 Discharge Orders: Discharge Order (Routine); Ordered 12/31/20 Ordered By: Jose Augustin Admission Data Admit Date/Time: 12/29/20 19:54 Attending Provider: Tiff Rae Admit Provider: Brianda Porter Primary Care Provider: [facility] Other Providers: Brianda Porter ; Aroldo Rivas ; Albert Dempsey Resident Activity Tracking Resident Involvement: Resident Care Provided Care Provided: Adult Hospital Medicine
--- NOTE | 2020-12-31 16:21 | Hospitalist Progress Note ---
Date of Service December 31, 2020 Assessment & Plan (1) Closed fracture of left hip: 85yo female with impacted subcapital fracture of the left femur after a fall [facility]. Found to have Closed fracture valgus impacted femoral neck of left hip. The following is the medical management during stay here: L Hip Fx - subcapital s/p ORIF - 12/30/20 -imaging showing Left subcapital hip fracture impacted mildly displaced -Postop day 1 status post ORIF left hip fracture with 7.3 cannulated screws -Pain is well controlled with Tylenol, Oxycodone and Morphine PRN. Rx for oxycodone sent in -PT/OT protocol per discharge instruction written below: 50% weightbearing -DVT prophylaxis-aspirin p.o. twice daily -Please schedule appt with [facility] with number provided below in 10-14 days as instructed H/O Ischemic heart disease -Pt denied chest pain at rest or with exertion. Her EKG did not show evidence of ischemia -ECHO done here: LV function is normal. Mild concentric LVH. The LA is mildly dilated. No significant valvular heart disease. Acute UTI (urinary tract infection): -UA suggestive of infection with +bacteria -Urine cultures grew E Coli ESBL with mixed sensitivities -Ceftriaxone 1gm IV daily initially here, was resistant so switched to IV Zosyn. On discharge to [facility] PO Bactrim x3 additional days -Continued Saccharomyces home medication CHI (closed head injury): -Patient has bruise over left eyelid. No headaches. No neurological deficits. Patient is not on any blood thinners or antiplatelets. -stable here Hypothyroid: -Chronic. Last TSH within normal limits at 1.070 on 09/14/20 -Continued Synthroid HLD (hyperlipidemia): -Continued Atorvastatin 10mg po qHS Depression: -Continued escitalopram Dementia: -Continued Memantine -Continued Aricept -Frequent orientation with delirium prevention strategies. Pt appeared mildly delirious on day of discharge, likely 2/2 new environment/hospitalization. FEN/GI: HH Diet DVT Prophylaxis: ASA BID CODE STATUS: Full Code Dispo: Med Surg. Discharge tomorrow AM to [facility]. CM already made arrangements for transportation. Admission and Anticipated Discharge Date Admission Date: December 29, 2020 Supervising Physician Co-Signing Physician Notes Resident Physician Supervision Note: I independently interviewed and examined the patient and verified the murphy history and physical, reviewed labs and image studies, discussed the case with the resident Dr. Augustin and agree with the findings and care plan. Subjective Postop day 1 Pt notes some pain at sx site. Otherwise tolerating PO intake. Eager to go home, unfortunately Stevie feels the need to wait until tomorrow. Pt otherwise medically stable. Working with PT/OT. Review of Systems Review of Systems: All systems reviewed & are unremarkable except as noted in HPI & below Physical Exam Constitutional: WD/WN, vitals as above Eyes: PERRL, conjunctivae normal, anicteric sclerae ENMT: external ear and nose normal, oropharynx normal Respiratory: normal respiratory effort, lungs clear to auscultation Cardiovascular: RRR, no murmur, no edema Gastrointestinal (Abdomen): normal bowel sounds, soft, nontender, no hepatosplenomegaly Skin: no rashes, warm and dry Psychiatric: Orientation: alert, oriented to person and oriented to time; + not oriented to place Results & Data Results & Data ([facility]) Vital Signs (Past 12 Hours) Vital Signs Temp Pulse Pulse Resp BP BP Pulse Ox 12/31/20 16:02 36.8 C 90 65 16 137/73 113/65 92 12/31/20 07:42 36.8 C 65 16 113/65 92 Laboratory Results Laboratory Results - last 24 hr 12/30/20 12/30/20 12/31/20 18:12 20:36 07:08 WBC 6.87 RBC 3.44 L Hgb 10.9 L Hct 32.9 L MCV 95.6 MCH 31.7 MCHC 33.1 RDW Std Deviation 43.3 RDW Coeff of Marisol 12.4 Plt Count 208 MPV 9.4 Sodium Potassium Chloride Carbon Dioxide Anion Gap BUN Creatinine Est Cr Clr Drug Dosing Est GFR ( Amer) Est GFR (Non-Af Amer) BUN/Creatinine Ratio Glucose POC Glucose 100 H 105 H Calcium 12/31/20 12/31/20 07:08 12:37 WBC RBC Hgb Hct MCV MCH MCHC RDW Std Deviation RDW Coeff of Marisol Plt Count MPV Sodium 135 L Potassium 4.7 Chloride 104 Carbon Dioxide 25 Anion Gap 6.0 BUN 27 H Creatinine 1.47 H Est Cr Clr Drug Dosing 28.8 Est GFR ( Amer) 36.8 Est GFR (Non-Af Amer) 31.8 BUN/Creatinine Ratio 18.2 Glucose 127 H POC Glucose 121 H Calcium 9.2 Medications Administered Current Inpatient Medications Acetaminophen (Acetaminophen 325 Mg Tab) 650 mg PO Q6H PRN PRN Reason: Pain & Pre PT Stop: 01/28/21 21:09 Aspirin (Aspirin 81 Mg Ectab) 81 mg PO BID NICOLASA Stop: 01/29/21 20:59 Last Admin: 12/31/20 09:32 Dose: 81 mg Documented by: Atorvastatin Calcium (Atorvastatin 10 Mg Tab) 10 mg PO HS NICOLASA Stop: 01/28/21 21:29 Last Admin: 12/30/20 22:01 Dose: 10 mg Documented by: Bisacodyl (Bisacodyl 10 Mg Supp) 10 mg DE DAILY PRN PRN Reason: Constipation Stop: 01/28/21 21:09 Bisacodyl (Bisacodyl 10 Mg Supp) 10 mg DE DAILY PRN PRN Reason: Constipation Stop: 01/29/21 19:30 Carbidopa/Levodopa (Carbidopa/Levodopa 25/100mg Tab) 1 tab PO TID NICOLASA Stop: 01/28/21 21:29 Last Admin: 12/31/20 13:39 Dose: 1 tab Documented by: Dextrose (Dextrose 50% 50 Ml Syringe) 25 - 50 ml IV UD PRN; Protocol PRN Reason: Hypoglycemia Protocol Stop: 01/29/21 20:38 Docusate Sodium (Docusate Sodium 100 Mg Cap) 100 mg PO BID NICOLASA Stop: 01/29/21 20:59 Last Admin: 12/31/20 09:32 Dose: 100 mg Documented by: Donepezil HCl (Donepezil Hcl 10 Mg Tab) 10 mg PO HS NICOLASA Stop: 01/28/21 21:29 Last Admin: 12/30/20 22:02 Dose: 10 mg Documented by: Escitalopram Oxalate (Escitalopram Oxalate 10 Mg Tab) 10 mg PO DAILY NICOLASA Stop: 01/29/21 08:59 Last Admin: 12/31/20 09:33 Dose: 10 mg Documented by: Glucagon (Glucagon For Inj 1 Mg Vial) 1 mg SQ UD PRN; Protocol PRN Reason: Hypoglycemia Protocol Stop: 01/29/21 20:38 Glucose (Glucose 10 Tabs/Tube) 4 - 8 tabs PO UD PRN; Protocol PRN Reason: Hypoglycemia Protocol Stop: 01/29/21 20:38 Glucose (Glucose 40% Gel 15 Gm Tube) 15 - 30 gm PO UD PRN; Protocol PRN Reason: Hypoglycemia Protocol Stop: 01/29/21 20:38 Piperacillin Sod/Tazobactam (Sod 3.375 gm/ Dextrose) 115 mls @ 28.75 mls/hr IV Q8H [facility]; Protocol Stop: 01/05/21 13:59 Insulin Aspart (Insulin Aspart 100 Units/Ml 3 Ml Pen) 0 units SC ACHS [facility] Stop: 01/29/21 20:59 Last Admin: 12/31/20 13:38 Dose: 5 units Documented by: Levothyroxine Sodium (Levothyroxine Sodium 75 Mcg Tablet) 75 mcg PO DAILYBB [facility] Stop: 01/29/21 06:29 Last Admin: 12/31/20 05:27 Dose: 75 mcg Documented by: Magnesium Hydroxide (Magnesium Hydroxide Susp 30 Ml Udc) 30 ml PO DAILY PRN PRN Reason: Constipation Stop: 01/28/21 21:09 Magnesium Hydroxide (Magnesium Hydroxide Susp 30 Ml Udc) 30 ml PO Q6H PRN PRN Reason: Constipation Stop: 01/29/21 19:30 Melatonin (Melatonin 3 Mg Tab) 3 mg PO HS [facility] Stop: 01/28/21 21:29 Last Admin: 12/30/20 22:03 Dose: Not Given Documented by: Memantine (Memantine Hcl 5 Mg Tab) 5 mg PO QPM [facility] Stop: 01/28/21 21:29 Last Admin: 12/30/20 22:02 Dose: 5 mg Documented by: Metoclopramide HCl (Metoclopramide Hcl Inj 5 Mg/Ml 2 Ml Vial) 10 mg IV Q6H PRN PRN Reason: Nausea And Vomiting Stop: 01/29/21 19:30 Miscellaneous (Carbohydrates For Hypoglycemia ) 15 - 30 gm PO UD PRN PRN Reason: Hypoglycemia Protocol Stop: 01/29/21 20:38 Miscellaneous Information (Piperacill/Tazobac Consult Active) 1 ea N/A UD PRN PRN Reason: Consult Stop: 01/30/21 08:38 Morphine Sulfate (Morphine Sulfate 2 Mg/Ml Carp) 1 mg IV Q4H PRN PRN Reason: Pain (1,2,3,4,5) & Pre PT Stop: 01/12/21 21:09 Last Admin: 12/31/20 04:26 Dose: 1 mg Documented by: Multivitamins (Multivitamin Tab) 1 tab PO QAM NICOLASA Stop: 01/30/21 08:59 Last Admin: 12/31/20 09:34 Dose: 1 tab Documented by: Naloxone HCl (Naloxone Hcl 0.4 Mg/1 Ml Vial/Carp) 0.1 mg IV UD PRN PRN Reason: Opiate Overdose Stop: 01/28/21 21:09 Naloxone HCl (Naloxone Hcl 0.4 Mg/1 Ml Vial/Carp) 0.1 mg IV Q5M PRN PRN Reason: Oversedation/Resp Depression Stop: 01/29/21 19:30 Nystatin (Nystatin Oint 15 Gm Tube) 1 appln EXT BID NICOLASA Stop: 01/28/21 21:09 Last Admin: 12/31/20 10:30 Dose: 1 appln Documented by: Ondansetron HCl (Ondansetron Inj 2 Mg/Ml 2 Ml Vial) 4 mg IV Q6H PRN PRN Reason: Nausea And Vomiting Stop: 01/28/21 21:09 Ondansetron HCl (Ondansetron Inj 2 Mg/Ml 2 Ml Vial) 4 mg IV Q6H PRN PRN Reason: Nausea And Vomiting Stop: 01/29/21 19:30 Oxycodone HCl (Oxycodone Hcl Ir 5 Mg Tab (Immediate Release)) 5 mg PO Q4H PRN PRN Reason: MODERATE Pain (4,5,6) & Pre PT Stop: 01/12/21 21:09 Last Admin: 12/31/20 09:31 Dose: 5 mg Documented by: Saccharomyces Boulardii (Saccharomyces Boulardii 250 Mg Cap) 250 mg PO BID [facility] Stop: 01/28/21 21:29 Last Admin: 12/31/20 09:33 Dose: 250 mg Documented by: Senna/Docusate Sodium (Docusate Sodium/Senna 50/8.6mg Tab) 2 tab PO HS [facility] Stop: 01/28/21 21:29 Last Admin: 12/30/20 21:59 Dose: Not Given Documented by: Sennosides (Senna 8.6 Mg Tab) 17.2 mg PO HS [facility] Stop: 01/29/21 20:59 Last Admin: 12/30/20 21:58 Dose: 17.2 mg Documented by: Resident Activity Tracking Resident Involvement: Resident Care Provided Care Provided: Adult Hospital Medicine (1) Closed fracture of left hip Encounter type: initial encounter Qualified Code(s): S72.002A - Fracture of unspecified part of neck of left femur, initial encounter for closed fracture
[2020-12-31] MEDS ORDERED: SULFAMETHOXAZOLE/TRIMETHOPRIM DS 800/160MG TAB PO ONE (17:13)
[2020-12-31] MEDS: DONEPEZIL HCL 10 MG TAB PO SCH (20:25)
[2020-12-31] MEDS: ATORVASTATIN 10 MG TAB PO SCH (20:29)
[2020-12-31] MEDS: MELATONIN 3 MG TAB PO SCH (20:29)
[2020-12-31] MEDS: MEMANTINE HCL 5 MG TAB PO SCH (20:30)
[2020-12-31] MEDS: DOCUSATE SODIUM/SENNA 50/8.6MG TAB PO SCH (20:30)
[2020-12-31] MEDS: SENNA 8.6 MG TAB PO SCH (20:30)
[2021-01-01] MEDS: LEVOTHYROXINE SODIUM 75 MCG TABLET PO SCH (06:15)
[2021-01-01 06:56] LABS: Basophils # (auto) 0.01 K/uL (0-0.2); Basophils % (auto) 0.1 %; Eosinophils # (auto) 0.33 K/uL (0-0.5); Eosinophils % (auto) 4.8 %; Hematocrit (blood only) 33.5 % (37-47); Hemoglobin 10.9 g/dL (12.0-16.0); Immature Granulocytes # (auto) 0.01 K/uL (0.00-0.02); Immature Granulocytes % (auto) 0.1 %; Lymphocytes # (auto) 1.27 K/uL (1.2-3.4); Lymphocytes % (auto) 18.6 %; Mean Corpuscular Hemoglobin 31.4 pg (25-34); Mean Corpuscular Hgb Conc 32.5 g/dL (32-36); Mean Corpuscular Volume 96.5 fL (80-100); Mean Platelet Volume 9.6 fL (7.4-10.4); Monocytes % (auto) 8.8 %; Neutrophils # (auto) 4.61 K/uL (1.4-6.5); Neutrophils % (auto) 67.6 %; Platelet Count 208 K/uL (130-400); RDW Coefficient of Variation 12.5 % (11.5-14.5); RDW Standard Deviation 43.9 fL (36.4-46.3); Red Blood Count 3.47 M/uL (4.2-5.4); White Blood Count 6.83 K/uL (4.8-10.8)
[2021-01-01 07:28] LABS: BUN Creatinine Ratio 23.7 (10-20); Calcium 9.6 mg/dl (8.5-10.1); Creatinine Clr Calc Pharmacy 24.8 ml/min; Est GFR (African American) 30.7; Est GFR (Non-African American) 26.5; Potassium 4.2 mmol/L (3.5-5.1)
--- NOTE | 2021-01-01 08:31 | Discharge Summary ---
Date of Service January 01, 2021 Admission HPI Per Admitting Provider Caryl Gaytan is an 85yo C female resident of [facility] presenting with fracture of left hip after a mechanical fall yesterday. Patient with underlying dementia as well as worsened confusion after receiving morphine and is unable to provide details of events prior to arrival. Majority of history obtained through discussion with ER staff and chart review. Per record review, patient was found down in her room yesterday after falling. She denies CP/palpitations or syncope. She did strike her head and was noted to have a bruise over the left eye. Patient had pain in the left hip - she continued to ambulate. An x-ray was performed at [facility] and patient found to have a left hip fracture therefore she was sent to [facility]. Patient complaining of mild left hip pain. She is not happy being in the ER and is somewhat frustrated that she has been here so long. Otherwise, no complaints. Specifically she denies fever, chills, cough, SOB, abdominal pain, nausea, vomiting, diarrhea or constipation. ER Course: Ceftriaxone 1gm, Morphine 2mg, Zofran 4mg, NSS Admission Exam Per Admitting Provider General: patient resting comfortably, NAD, non-toxic in appearance, AA&O to self Skin: warm, dry, intact, well demarcated erythematous rash beneath panus HEENT: NC/AT, PERRL, EOMI, anicteric sclera, conjunctiva without injection, external ear normal to inspection and nontender, nares patent, moist mucus membranes, dentition intact, no oropharyngeal lesions, neck supple, trachea midline, no LAD, no thyromegaly, no JVD Heart: +S1/S2, regular, no m/r/g Lungs: equal air entry bilaterally, no rales/rhonchi/wheezes Abd: +BS, soft, NT/ND, no masses/organomegaly/ascites Ext: warm, 2+ pulses in UE/LE bilaterally, no clubbing/cyanosis or edema Neuro: nonfocal, patient AA&O to self, speech intact, no facial droop, moving all extremities on command with equal strength 5/5 Principal Diagnosis L hip fx Discharge Exam Constitutional WD/WN, vitals as above Eyes PERRL, conjunctivae normal, anicteric sclerae ENMT external ear and nose normal, oropharynx normal Respiratory normal respiratory effort, lungs clear to auscultation Cardiovascular RRR, no murmur, no edema Gastrointestinal (Abdomen) normal bowel sounds, soft, nontender, no hepatosplenomegaly Musculoskeletal L Hip TTP Skin no rashes, warm and dry Psychiatric Orientation: alert, oriented to person and oriented to time; + not oriented to place Discharge Data Allergies Allergy/AdvReac Type Severity Reaction Status Date / Time meperidine Allergy Unknown Unknown Verified 12/29/20 17:56 Consultations 12/29/20 19:32 ED Decision to Admit Stat 12/29/20 21:10 Consult Orthopedic Surgery Routine Procedures Performed Operation Date: 12/30/20 14:00 Actual Procedures p Left Hip Cannulated Screw Open Reduction Internal Fixation(Left) - Messi Meade MD Ordered Studies 12/29/20 17:34 CT head/brain wo con Stat 12/30/20 FL fluoroscopy <1hr Routine FL hip LT 2-3V Routine 12/30/20 07:17 CT hip LT wo con Urgent Hospital Course (1) Closed fracture of left hip: Closed fracture of left hip: 85yo female with impacted subcapital fracture of the left femur after a fall yesterday at her half-way. Found to have Closed fracture valgus impacted femoral neck of left hip. The following is the medical management during stay here: L Hip Fx s/p ORIF -imaging showing Left subcapital hip fracture impacted mildly displaced -status post ORIF left hip fracture with 7.3 cannulated screws -Pain is well controlled with Tylenol, Oxycodone and Morphine PRN. Rx for oxycodone sent in -PT/OT protocol per discharge instruction written below: 50% weightbearing -DVT prophylaxis-aspirin p.o. twice daily -Please schedule appt with [facility] with number provided below in 10-14 days as instructed H/O Ischemic heart disease -Pt denied chest pain at rest or with exertion. Her EKG did not show evidence of ischemia -ECHO done here: LV function is normal. Mild concentric LVH. The LA is mildly dilated. No significant valvular heart disease. Acute UTI (urinary tract infection): -Urine cultures grew E Coli ESBL with mixed sensitivities -Ceftriaxone 1gm IV daily initially here, was resistant so switched to IV Zosyn. On discharge to [facility] PO Bactrim x3 additional days -Continued Saccharomyces home medication CHI (closed head injury): -Patient has bruise over left eyelid. No headaches. No neurological deficits. Patient is not on any blood thinners or antiplatelets. -stable here Hypothyroid: -Chronic. Last TSH within normal limits at 1.070 on 09/14/20 -Continued Synthroid HLD (hyperlipidemia): -Continued Atorvastatin 10mg po qHS Depression: -Continued escitalopram Dementia: -Continued Memantine -Continued Aricept -Pt appeared mildly delirious on day of discharge, likely 2/2 new environment/hospitalization. Total Time Total Time Spent Total Time Spent (In Minutes): 35 Discharge Plan Discharge Items Patient Disposition: Trans Resident Long-Term Care Reason For Visit: left hip fracture Discharge Diagnosis: Left subcapital hip fracture Activity: Per Instructions section Weightbearing: Left partial Weightbearing Comment: 50% weightbearing on the left lower extremity with walke r. Non-emergency contact: Surgeon Call non-emergency contact if: your pain is not controlled, your temperature is above 101.5, your wound has increased redness and your wound has increased drainage [facility] - Diet: Heart Healthy Addtl Attending Provider Instructions: 85yo female with impacted subcapital fracture of the left femur after a fall yesterday at her half-way. Found to have Closed fracture valgus impacted femoral neck of left hip. The following is the medical management during stay here: L Hip Fx -imaging showing Left subcapital hip fracture impacted mildly displaced -Postop day 1 status post ORIF left hip fracture with 7.3 cannulated screws -Pain is well controlled with Tylenol, Oxycodone and Morphine PRN. Rx for oxycodone sent in -PT/OT protocol per discharge instruction written below: 50% weightbearing -DVT prophylaxis-aspirin p.o. twice daily -Please schedule appt with [facility] with number provided below in 10-14 days as instructed H/O Ischemic heart disease -Pt denied chest pain at rest or with exertion. Her EKG did not show evidence of ischemia -ECHO done here: LV function is normal. Mild concentric LVH. The LA is mildly dilated. No significant valvular heart disease. Acute UTI (urinary tract infection): -UA suggestive of infection with +bacteria -Urine cultures grew E Coli ESBL with mixed sensitivities -Ceftriaxone 1gm IV daily initially here, was resistant so switched to IV Zosyn. On discharge to cont PO Bactrim x3 additional days -Continued Saccharomyces home medication CHI (closed head injury): -Patient has bruise over left eyelid. No headaches. No neurological deficits. Patient is not on any blood thinners or antiplatelets. -stable here Hypothyroid: -Chronic. Last TSH within normal limits at 1.070 on 09/14/20 -Continued Synthroid HLD (hyperlipidemia): -Continued Atorvastatin 10mg po qHS Depression: -Continued escitalopram Dementia: -Continued Memantine -Continued Aricept -Frequent orientation with delirium prevention strategies. Pt appeared mildly delirious on day of discharge, likely 2/2 new environment/hospitalization. Addtl Retail Key Holder Provider Instructions: [facility] DISCHARGE INSTRUCTIONS: HIP FRACTURE SELF CARE INSTRUCTIONS: A. You are to ambulate with a walker or crutches for approximately 6 weeks. B. You are PARTIAL WEIGHT BEARING on your operative lower extremity for at least 6 weeks. C. Wear low heeled shoes with non-slip soles D. Be sure that your floors are free of things that could trip you throw rugs, electrical cords, and small objects. Avoid wet and waxed floors, especially with crutches/walker/cane. E. Try to walk several times a day with rest periods between. F. You may shower 48 hours after surgery and get the incision area wet, but DO NOT soak or submerge incision area in water. (No baths, swimming pools, hot tubs) G. You may have a large, band-aid like dressing over your incision (Aquacel). This will remain on your incision for 7 days, and then can be removed. You CAN shower with this on. If incision is leaking through the dressing, please call the office . H. Do NOT apply soap or any ointment/lotions directly over incision. I. You may use ice as needed to operative site. SPECIAL CARE INSTRUCTIONS: VERY IMPORTANT TO READ AND REVIEW A. You may be at risk for phlebitis or blood clots. a. Wear surgical stockings (SHARON hose) for 2 weeks after surgery to improve circulation and reduce swelling. b. Take ASPIRIN 81 po BID for 4 weeks or as directed. This is your blood thinner. . B. There are a few signs you need to watch for after you are home. Call [facility] at [phone] if you experience any of the following: a. If you have a temperature of 101 degrees or higher. b. Sudden increase in pain in your hip not relieved by rest or pain medication. c. Any fluid or drainage from the incision; redness of the incision. d. Shortness of breath or chest pain. . C. Call your physician if: a. Temperature is greater than 101 degrees (F). b. Pain is not relieved by prescribed pain medications. c. Increase drainage or redness from incision. d. Unanswered questions or concerns. D. Pain Medication: a. You will be prescribed pain medication upon discharge that should last till your first post-operative appointment. b. If you experience nausea and/or skin rash, discontinue this medication and contact our office for an alternative medication. c. Caution- narcotic pain medication can cause constipation. FOLLOW UP VISIT: Please call [facility] at [phone] to schedule a follow up appointment 10-14 days from the date of your surgery date. Pending Studies at Discharge: No Stand-Alone Forms: My [facility] Skilled Items Patient informed of condition?: Yes DNR: No Discharge Level of Care: Skilled Communicable Disease: No Discharge Prognosis: Stable Lines: None Urinary Catheter: No Medications and DC Order Prescriptions: New sulfamethoxazole-trimethoprim [Bactrim DS] 800-160 mg tablet 1 tab PO DAILY 3 Days Qty: 3 RF: 0 aspirin 81 mg tablet,delayed release (DR/EC) 81 mg PO BID 30 Days Qty: 60 RF: 0 hydrocodone-acetaminophen 5-325 mg tablet 1 tab PO TID PRN (Reason: pain) Qty: 10 RF: 0 Continued acetaminophen 325 mg Tablet 650 mg PO Q6H MDD 3 GMS APAP/24 HOURS PRN (Reason: Fever Or Pain) RF: 0 atorvastatin 10 mg tablet 10 mg PO HS RF: 0 donepezil 10 mg tablet 10 mg PO HS RF: 0 cyanocobalamin (vitamin B-12) [Vitamin B-12] 1,000 mcg Tablet 1,000 mcg PO DAILY RF: 0 melatonin 3 mg Tablet 3 mg PO HS RF: 0 levothyroxine 75 mcg tablet 75 mcg PO DAILY RF: 0 carbidopa-levodopa 25-100 mg tablet 1 tab PO TID RF: 0 Stress Formula Tablet 1 tab PO DAILY RF: 0 Saccharomyces boulardii 250 mg Capsule 250 mg PO BID RF: 0 escitalopram oxalate 10 mg tablet 10 mg PO DAILY RF: 0 memantine 5 mg tablet 5 mg PO QPM RF: 0 cholecalciferol (vitamin D3) [Vitamin D3] 50 mcg (2,000 unit) Tablet 50 mcg PO DAILY RF: 0 Discharge Orders: Discharge Order (Routine); Ordered 01/01/21 Ordered By: Jose F Porter Admission Data Admit Date/Time: 12/29/20 19:54 Attending Provider: Tiff Rae Admit Provider: Brianda Porter [facility] Other Providers: Brianda Porter ; Aroldo Rivas ; Albert Dempsey Other Interventions: Discharge Summary Assessment (RN) Last Done: 01/01/21 10:04 Supervising Physician Co-Signing Physician Notes Resident Physician Supervision Note: I independently interviewed and examined the patient and verified the murphy history and physical, reviewed labs and image studies, discussed the case with the resident Dr. Jose F Porter and agree with the findings and care plan. Resident Activity Tracking Resident Involvement: Resident Care Provided Care Provided: Adult Hospital Medicine
[2021-01-01] MEDS: SACCHAROMYCES BOULARDII 250 MG CAP PO SCH (08:37)
[2021-01-01] MEDS: CARBIDOPA/LEVODOPA 25/100MG TAB PO SCH (08:37)
[2021-01-01] MEDS: ASPIRIN 81 MG ECTAB PO SCH (08:37)
[2021-01-01] MEDS: ESCITALOPRAM OXALATE 10 MG TAB PO SCH (08:37)
[2021-01-01] MEDS: NYSTATIN OINT 15 GM TUBE EXT SCH (08:37)
[2021-01-01] MEDS: MULTIVITAMIN TAB PO SCH (08:38)
[2021-01-01] MEDS: DOCUSATE SODIUM 100 MG CAP PO SCH (08:38)
[2021-01-01] MEDS: INSULIN ASPART 100 UNITS/ML 3 ML PEN SC SCH (08:38)
--- NOTE | 2021-01-01 10:16 | Orthopedic Progress Note ---
Date of Service January 01, 2021 Assessment & Plan (1) Closed fracture of left hip: Postop day 2 status post ORIF left hip fracture with 7.3 cannulated screws. PT/OT protocols. 50% weightbearing. DVT prophylaxis-aspirin p.o. twice daily, SCDs Pain management as written. DC planning to [facility] today, awaiting discharge F/U with [facility] in 10-14 days, call [phone] Admission and Anticipated Discharge Date Admission Date: December 29, 2020 Subjective Patient is sitting in chair and eager to be discharged from hospital. She has minimal pain to left hip. Denies CP, SOB, dizziness, calf pain Physical Exam Physical Exam: Toes mobile, NVI. Calves soft, non tender. Dressing in place to left hip. Results & Data ([facility]) Vital Signs (Past 12 Hours) Vital Signs Temp Pulse Pulse Resp BP BP Pulse Ox 01/01/21 10:04 36.7 C 90 68 15 113/65 96 01/01/21 07:35 36.7 C 68 15 147/71 H 96 12/31/20 22:22 37.1 C 63 17 111/62 92 (1) Closed fracture of left hip Encounter type: initial encounter Qualified Code(s): S72.002A - Fracture of unspecified part of neck of left femur, initial encounter for closed fracture
--- NOTE | 2021-01-11 08:41 | Operative Report (OR) ---
DATE OF OPERATION: 12/30/2020 ADDENDUM Harish Barron, physician office administrative assistant, assisted me as administrative assistant throughout the procedure. He assisted in patient positioning on the fracture table, assisted in retraction during the procedure and performed the final wound closure, dressings and participated in postoperative care of the patient. I attest to the content of the Intraoperative Record and any orders documented therein. Any exception s are noted below.
== END 2021-01-01 10:45 | DRG 481 ==
LOC: ED 16:49 → 3N 19:54 → SUATTDRO 19:54 → 3N 20:40